=== PATIENT | female | born 2000 | race Two or more races ===

== ENCOUNTER 2023-02-28 07:11 | Emergency (ER) | payer MEDICAID, SELFPAY ==
[2023-02-28 07:38] VITALS: BP 119/46; PULSE 84; RESP 16; TEMP 36.6; O2SAT 98; BMI 43.0
--- NOTE | 2023-02-28 07:48 | ED_ITS ---
HPI - Ear Problem General Chief complaint: Ear Problems Stated complaint: L ear ache Time Seen by Provider: 02/28/23 07:48 Source: patient Mode of arrival: ambulatory Limitations: no limitations History of Present Illness HPI Narrative: 23 yo female presents to the ER for evaluation of bilateral ear pain that started last night, left greater than right. She states she spent the last week at a hotel with her family and spent a lot of time in the pool, up to 5 hours per day. She thinks she has swimmer's ear. She has a history of this is a child. She denies any hearing loss or drainage. She states her left ear hurts significantly worse than the right ear. She has a mild runny nose. No fever or chills. MD Complaint: ear pain Location: bilateral Duration: constant Severity: moderate Relieving factors: nothing Exacerbating factors: position of head and palpation Context: recent swimming Discharge from ear: no Associated symptoms ear: external ear tenderness Treatment prior to arrival: none Related Data Previous Rx's Medication Instructions Recorded ciprofloxacin 0.3 %-dexamethasone 4 drp otic (ears) BID 7 days #7.5 02/28/23 0.1 % ear drops,suspension mL (Ciprodex) ibuprofen 600 mg tablet 600 mg PO Q8H PRN fever or pain 02/28/23 #14 tabs levofloxacin 500 mg tablet 500 mg PO DAILY #7 tabs 02/28/23 Allergies Allergy/AdvReac Type Severity Reaction Status Date / Time Penicillins [PENICILLINS] Allergy Intermediate NASAL Verified 02/28/23 07:40 STUFFYNESS Review of Systems Review of Systems: Yes all other systems are reviewed and are negative FOR[facility] Social History Social History Advance Directives: No Advance Directives Information Provided: No Physical Exam Vital Signs: Vital Signs: Last Vital Signs Temp 97.8 F 02/28/23 07:38 Pulse 84 02/28/23 07:38 Resp 16 02/28/23 07:38 BP 119/46 L 02/28/23 07:38 Pulse Ox 98 02/28/23 07:38 O2 Del Method Room Air 02/28/23 07:38 BMI result Body Mass Index 43.0 Appearance: Alert. Oriented X3. No acute distress. Head: normocephalic, atraumatic. Eyes: Pupils equal, round and reactive to light. ENT: Pharynx normal. No tonsillar swelling or exudate. Left EAC with mild swelling and tenderness. Left TM with erythema and bulging. Right TM and EAC are normal to inspection Neck: Normal inspection. Neck supple. CVS: Normal heart rate and rhythm. Pulses normal. Respiratory: No respiratory distress. Breath sounds normal. Skin: Skin warm and dry. Normal skin color. Normal skin turgor. No rashes. Extremities: No lower extremity edema. No joint swelling. Neuro/psych: Oriented X 3. No motor deficit. No sensory deficit. CN II-XII intact. Normal speech and cognition. Medical Decision Making Medical Decision Making MDM Narrative: 23-year-old female presenting to the ER for evaluation of ear pain, left worse than right since yesterday after spending several days in a hotel pool this week. Exam is consistent with otitis media on the left, possible early otitis externa. Given her full exposure will empirically treat with both oral and topical antibiotics. She was counseled on diagnosis and management as well as precautions, advised not gait water in the ear. Antibiotic prescriptions have been sent her pharmacy. She is stable for discharge home. Work note provided per request. Differential Diagnosis Differential Diagnoses: The differential diagnosis associated with the presen tation includes Acute otitis media, acute otitis externa, sinus infection, cerumen impaction External Record Review External record reviewed: Outpatient record Prescription Management I considered prescription management with: Antibiotic Critical Care Time Critical Care Time Critical Care Time: No Discharge Plan Discharge Clinical Impression: Otitis media Patient Disposition: Home, Self-Care Instructions: Ear Infection (ED) Additional Instructions: Take the prescribed oral antibiotic as directed. Complete the entire course and do not miss any doses. Use the prescribed antibiotic drops into the left ear for 1 week. Take the prescribed ibuprofen as needed for pain. Do not get water in your ear, when you take a shower put a cotton ball inside her ear to prevent water from getting in. Follow-up with your doctor as needed. If you develop new or worsening symptoms call 911 or come back to the ER for further evaluation. Prescriptions: New levofloxacin 500 mg tablet 500 mg PO DAILY Qty: 7 0RF ciprofloxacin-dexamethasone [Ciprodex] 0.3-0.1 % drops,suspension 4 drp otic (ears) BID 7 Days Qty: 7.5 0RF ibuprofen 600 mg tablet 600 mg PO Q8H PRN (Reason: fever or pain) Qty: 14 0RF Stand Alone Forms: Work/School Release
== END 2023-02-28 08:43 | disposition home or self-care (01) ==
PROVIDERS: Emergency Provider Emergency Medicine
DX: H66.92 Otitis media, unspecified, left ear (principal); H92.02 Otalgia, left ear
CPT/HCPCS: 99282; 99283

== ENCOUNTER 2023-03-03 08:50 | Emergency (ER) | payer MEDICAID, SELFPAY ==
--- NOTE | 2023-03-03 | ECG_ITS ---
Test Reason : CP Blood Pressure : / mmHG Vent. Rate : 061 BPM Atrial Rate : 061 BPM P-R Int : 144 ms QRS Dur : 088 ms QT Int : 416 ms P-R-T Axes : 054 051 023 degrees QTc Int : 418 ms Normal sinus rhythm Normal ECG No previous ECGs available Referred By: Generic ED Physician Electronically Signed By:ISABELLA MCKEON
--- NOTE | ~2023-03-03 | CT_ITS ---
EXAMINATION: CT ABDOMEN AND PELVIS WITH CONTRAST CLINICAL INFORMATION: Abdominal pain, nausea, and vomiting. COMPARISON: None available. TECHNIQUE: Multidetector volumetric images were obtained from the superior aspect of the liver through the pubic symphysis following administration 85 mL of Omnipaque 350 intravenous contrast. Sagittal and coronal reformatted images were obtained on the technologist's workstation. Oral contrast: No This CT examination was performed using dose optimization techniques as appropriate, variously including the following: *Automated exposure control *Adjustment of mA and/or kV according to patient size (this includes techniques or standardized protocols for targeted exams where dose is matched to indication/reason for exam; i.e. extremities or head) *Use of iterative reconstruction technique DLP: 862 mGy-cm FINDINGS: LUNG BASES: The lung bases appear clear, with no evidence of inflammation or nodules. LIVER, GALLBLADDER, AND BILIARY TREE: Mild fatty infiltration of liver. The liver appears unremarkable in size and shape. No focal hepatic lesion or biliary ductal dilatation is appreciated. Unremarkable appearance of the gallbladder. PANCREAS: Unremarkable SPLEEN: Unremarkable ADRENAL GLANDS: Unremarkable KIDNEYS AND URETERS: The kidneys appear unremarkable in size, shape, and attenuation. No hydronephrosis, hydroureter, or calculi seen. BLADDER: Unremarkable GASTROINTESTINAL TRACT: The small and large bowel appear unremarkable. No diverticulosis. Normal-appearing distal ileum and vermiform appendix. ABDOMINAL WALL: No significant hernia is appreciated. LYMPH NODES: No evidence of adenopathy by size criteria. VASCULAR: Normal variant retroaortic left renal vein. PELVIC VISCERA: Retroverted uterus. OSSEOUS STRUCTURES: Unremarkable CT/CT abdomen pelvis w IV con IMPRESSION: No acute finding.
[2023-03-03 08:56] VITALS: BP 122/67; BP 140/80; PULSE 78; PULSE 89; RESP 20; TEMP 36.7; O2SAT 97; O2SAT 99; BMI 45.4
[2023-03-03 09:02] VITALS: BP 122/67; PULSE 78; RESP 20; TEMP 36.7; O2SAT 97
--- NOTE | 2023-03-03 09:11 | ED_ITS ---
HPI - General Adult General Chief complaint: Nausea/Vomiting/Diarrhea Stated complaint: abd pain w/vomiting blood per ems Time Seen by Provider: 03/03/23 09:11 Source: patient, family (partner) and EMS Mode of arrival: EMS Limitations: no limitations History of Present Illness HPI narrative: Patient is a 23 year old assigned female at with no reported medical history presenting to the emergency department today with nausea, abdominal pain, and vomiting. Patient states that over the last few hours she has had worse upper abdominal pain, nausea, and vomiting. Patient states that she was recently seen for an ear infection and given ibuprofen 600mg and levofloxacin. Patient states that she is having worsening nasal congestion. Patient denies any dizziness, lightheadedness, fever, chills, blurry vision, double vision, loss of vision, chest pain, difficulty breathing, shortness of breath, back pain, night sweats, pain with urination, increased urinary frequency, increased urinary urgency, blood in her urine or stool, syncope or a near syncopal episode, recent trauma or falls, bowel incontinence, bladder incontinence, bowel retention, bladder retention, or any other complaints at this time. Onset (ago): hour(s) Location: abdomen Severity: mild Severity scale (1-10): 3 Pain Consistency: constant Relieving factors: none Exacerbating factors: none Associated symptoms: nausea/vomiting Treatments prior to arrival: none Related Data Previous Rx's Medication Instructions Recorded ciprofloxacin 0.3 %-dexamethasone 4 drp otic (ears) BID 7 days #7.5 02/28/23 0.1 % ear drops,suspension mL (Ciprodex) doxycycline hyclate 100 mg tablet 100 mg PO BID 7 days #14 tabs 03/03/23 omeprazole 40 mg capsule,delayed 40 mg PO DAILY #30 caps 03/03/23 release ondansetron 4 mg disintegrating 4 mg PO Q8H 3 days #9 tabs 03/03/23 tablet Allergies Allergy/AdvReac Type Severity Reaction Status Date / Time Penicillins [PENICILLINS] Allergy Intermediate NASAL Verified 02/28/23 07:40 STUFFYNESS Review of Systems Constitutional: Constitutional: Reports no additional constitutional complaints, Denies chills, Denies fever(s) and Denies night sweats Eyes: Eyes: Reports no additional eye complaints, Denies blurry vision, Denies change in vision, Denies diplopia, Denies eye discharge, Denies loss of vision and Denies eye pain ENT: Denies dizziness Cardiovascular: Cardiovascular: Reports no additional cardiovascular complaints, Denies chest pain, Denies lightheadedness, Denies Loss of Consciousness and Denies dyspnea Respiratory: Respiratory: Reports no additional respiratory complaints and Denies dyspnea Gastrointestinal: Gastrointestinal: Reports no additional gastrointestinal complaints, Reports abdominal pain, Denies melena, Denies hematochezia, Denies change in bowel habits, Denies change in stool character, Reports nausea and Reports vomiting Genitourinary: Genitourinary: Denies hematuria, Denies urinary frequency, Denies dysuria, Denies urinary incontinence, Denies urinary hesitancy and Denies urinary urgency Musculoskeletal: Musculoskeletal: Reports no additional musculoskeletal complaints, Denies numbness and Denies tingling Neurologic: Denies dizziness, Denies loss of vision, Denies numbness and Denies tingling Psychiatric: Psychiatric: Reports no additional psychiatric complaints Endocrine: Endocrine: Reports no additional endocrine complaints Hematologic/Lymphatic: Hematologic/Lymphatic: Reports no additional hematologic/lymphatic complaints Allergic/Immunologic: Allergic/Immunologic: Reports no additional allergic/immunologic complaints PMFSH Past Medical History Attestation statement: The following information was validated with the patient. Source: old records reviewed and nursing notes reviewed Social History Social History Substance Use Type: Marijuana Physical Exam ED Vital Signs: Vital Signs - 24 hr 03/03/23 08:56 03/03/23 09:02 03/03/23 12:01 Temperature 98.0 F 98.0 F 98.1 F Pulse Rate 78 78 83 Respiratory Rate 20 20 16 Blood Pressure 122/67 122/67 135/59 L Pulse Oximetry 97 97 99 Oxygen Delivery Method Room Air Room Air Room Air BMI result Body Mass Index 45.4 Const General: cooperative, no acute distress, alert and awake Nutritional Appearance: well nourished Orientation/consciousness: patient oriented x3 Limitations: no limitations HENMT Head: Yes normal to inspection and Yes atraumatic Ears: hearing grossly normal bilaterally and external ears normal General nose exam: Normal external nose present, no nasal discharge noted and no epistaxis Face and sinus: Yes normal facial exam, No abrasion and No laceration Mouth: Normal oral and palatal mucosa present, no drooling and no muffled voice Eyes General: appearance normal, both eyes and all related structures Periorbital: periorbital findings normal Eyelids: Yes eyelids normal Conjunctivae: conjunctivae normal Pupils: Equal, round and reactive pupils present EOM: EOMs intact bilaterally Neck Neck: Yes normal visual inspection, Yes full ROM and Yes no lymphadenopathy Chest Chest palpation & inspection: normal inspection of the chest Resp Effort & Inspection: normal respiratory effort and able to speak in complete sentences Auscultation: clear to auscultation bilaterally Cardio Rate: regular rate Rhythm: regular rhythm GI Inspection: Yes normal to inspection Palpation (GI): Soft to palpation, not firm, nontender and no guarding Neuro General: patient oriented x3 and moves all extremities Cranial nerves: Yes Equal, round and reactive pupils present Cognition (Neuro): normal cognition Motor exam (neuro): 5/5 motor strength present throughout Sensory Exam: Normal double simultaneous stimulation for sensation Coordination: [id number]-pg-[id number] test normal Extrem General: Yes normal to inspection, Yes full ROM and Yes capillary refill normal Psych Appearance: grossly normal Mental Status: mental status grossly normal Affect: normal affect Attitude: cooperative Thought process: Normal thought process present Thought content: Normal thought content present Insight: Good insight present (Psych) Medications Administered Discontinued Medications Generic Name Dose Route Start Last Admin Trade Name Freq PRN Reason Stop Dose Admin Sodium Chloride 1,000 mls @ 999 mls/hr 03/03/23 09:15 03/03/23 11:08 Ns IV 03/03/23 10:15 Infused .Q1H1M TYSON Infusion Iohexol 100 ml 03/03/23 13:00 03/03/23 13:01 Iohexol 350 Mg/Ml 100 Ml Infus..Btl IV 03/03/23 13:01 85 ml ONCE ONE Administration Ondansetron HCl 4 mg 03/03/23 09:11 03/03/23 09:47 Ondansetron Hcl 4 Mg/2 Ml Vial IVPUSH 03/03/23 09:12 4 mg ONCE ONE Administration Pantoprazole Sodium 40 mg 03/03/23 09:11 03/03/23 09:49 Pantoprazole Sodium 40 Mg/10 Ml Vial IVPUSH 03/03/23 09:12 40 mg ONCE ONE Administration Medical Decision Making Medical Decision Making MDM Narrative: Patient is a 23 year old assigned female at with no reported medical history presenting to the emergency department today with epigastric pain, nausea, and vomiting. Patient's physical exam was unremarkable. Patient's blood work was unremarkable. Patient's abdomen/pelvis CT showed no acute process. Given patient's description of symptoms and recent excessive Ibuprofen use, I have concern for a peptic ulcer. I explained my physical exam findings as well as all test results to the patient and the patient's partner. I answered all questions asked by the patient and the patient's partner. Patient received IV fluids, protonix, and zofran which she stated helped her symptoms significantly. I stressed the importance of the patient taking her medication as prescribed. I stressed the importance of the patient STOPPING all NSAID use and stopping the levofloxacin. I stressed the importance of the patient following up with her primary care provider and a GI Specialist. I stressed the importance of the patient returning to the emergency department immediately if her symptoms were to worsen or if she were to develop any dizziness, shortness of breath, difficulty breathing, chest pain, blurry vision, loss of vision, nausea, vomiting, abdominal pain, fever, chills, back pain, or any other complaints. Patient verbalized agreement and understanding with this treatment plan and discharg. Differential Diagnosis Differential Diagnoses: The differential diagnosis associated with the presentation includes abdominal pain, nausea, vomiting, peptic ulcer Admission/Observation Consideration of admission/observation: Escalation of care including admission/observation considered Patient would have been admitted had there been evidence of a perforation, evidence of a surgical process, or intractable symptoms. Lab Data MDM Lab Attestation statement: I reviewed the patient's lab results. 03/03/23 09:43 03/03/23 09:43 Labs: Lab Results 03/03/23 03/03/23 03/03/23 Range/Units 09:43 09:43 09:43 WBC 11.1 H (4.8-10.8) X10*3/uL RBC 5.23 (4.20-5.50) X10*6/uL Hgb 13.8 (12.0-16.0) g/dl Hct 43.2 (37.0-47.0) % MCV 82.6 (80.0-98.0) fL MCH 26.4 L (27.0-33.0) pg MCHC 31.9 (31.0-35.0) g/dl RDW 13.8 (11.0-16.0) % Plt Count 260 (160-400) X10*3/uL MPV 11.7 (9.4-12.3) fL Immature Gran % (Auto) 0.3 (0.0-0.4) % Neut % (Auto) 62.7 (45-73) % Lymph % (Auto) 28.5 (20-40) % [place] % (Auto) 6.2 (2-11) % Eos % (Auto) 1.7 (0-4) % Baso % (Auto) 0.6 (0-2) % Lymph # (Auto) 3.2 (1.2-4.9) X10*3/uL [place] # (Auto) 0.7 (0.1-1.2) X10*3/uL Eos # (Auto) 0.2 (0.0-0.4) X10*3/uL Baso # (Auto) 0.1 (0.0-0.2) X10*3/uL Abs Immat Gran (auto) 0.03 (0.00-0.03) X10*3/uL Absolute Neuts (auto) 6.9 (2.0-8.3) x10*3/uL Absolute Nucleated RBC 0.000 (0.0-0.012) X10*3/uL Nucleated RBC % (auto) 0.0 (0.0-0.2) /100WBC Sodium 141 (135-145) mmol/L Potassium 4.6 (3.3-5.1) mmol/L Chloride 108 (96-108) mmol/L Carbon Dioxide 22 (22-29) mmol/L Anion Gap 16 (12-20) BUN 10 (9-16) mg/dL Creatinine 0.75 (0.5-1.4) mg/dL Estim Creat Clear Calc 130.2 Estimated GFR > 60 Random Glucose 90 (60-115) mg/dL Calcium 9.5 (8.4-10.2) mg/dL Magnesium 2.0 (1.6-2.6) mg/dL Total Bilirubin 0.3 (0.0-1.0) mg/dL AST 17 (5-31) U/L ALT 19 (0-31) U/L Alkaline Phosphatase 100 (39-117) U/L Troponin I High Sens < 2.7 (<3.5-17.0) ng/L Total Protein 6.8 (6.5-8.0) g/dL Albumin 4.4 (3.5-5.0) g/dL Beta HCG, Quant mIU/mL 03/03/23 Range/Units 09:43 WBC (4.8-10.8) X10*3/uL RBC (4.20-5.50) X10*6/uL Hgb (12.0-16.0) g/dl Hct (37.0-47.0) % MCV (80.0-98.0) fL MCH (27.0-33.0) pg MCHC (31.0-35.0) g/dl RDW (11.0-16.0) % Plt Count (160-400) X10*3/uL MPV (9.4-12.3) fL Immature Gran % (Auto) (0.0-0.4) % Neut % (Auto) (45-73) % Lymph % (Auto) (20-40) % [place] % (Auto) (2-11) % Eos % (Auto) (0-4) % Baso % (Auto) (0-2) % Lymph # (Auto) (1.2-4.9) X10*3/uL [place] # (Auto) (0.1-1.2) X10*3/uL Eos # (Auto) (0.0-0.4) X10*3/uL Baso # (Auto) (0.0-0.2) X10*3/uL Abs Immat Gran (auto) (0.00-0.03) X10*3/uL Absolute Neuts (auto) (2.0-8.3) x10*3/uL Absolute Nucleated RBC (0.0-0.012) X10*3/uL Nucleated RBC % (auto) (0.0-0.2) /100WBC Sodium (135-145) mmol/L Potassium (3.3-5.1) mmol/L Chloride (96-108) mmol/L Carbon Dioxide (22-29) mmol/L Anion Gap (12-20) BUN (9-16) mg/dL Creatinine (0.5-1.4) mg/dL Estim Creat Clear Calc Estimated GFR Random Glucose (60-115) mg/dL Calcium (8.4-10.2) mg/dL Magnesium (1.6-2.6) mg/dL Total Bilirubin (0.0-1.0) mg/dL AST (5-31) U/L ALT (0-31) U/L Alkaline Phosphatase (39-117) U/L Troponin I High Sens (<3.5-17.0) ng/L Total Protein (6.5-8.0) g/dL Albumin (3.5-5.0) g/dL Beta HCG, Quant < 2 mIU/mL Independent Interpretation I performed an independent interpretation of an: EKG and CT Scan Interpretation: Vent. Rate: 061 BPM ? ? Atrial Rate: 061 BPM P-R Int: 144 ms? QRS Dur: 088 ms QT Int: 416 ms ? ? ? P-R-T Axes: 054 051 023 degrees QTc Int: 418 ms ? Normal sinus rhythm Normal ECG No previous ECGs available ? Electronically Signed By:TOBIAS SCHULTZ Dictated By: Tobias Schultz MD Signed By: Electronically signed by Tobias Schultz MD 03/03/23 1238 My interpretation is in agreement with the radiologist's impression of this imaging study. EXAMINATION: CT ABDOMEN AND PELVIS WITH CONTRAST? CLINICAL INFORMATION: Abdominal pain, nausea, and vomiting.? COMPARISON: None available. TECHNIQUE: Multidetector volumetric images were obtained from the superior aspect of the liver through the pubic symphysis following administration 85 mL of Omnipaque 350 intravenous contrast. Sagittal and coronal reformatted images were obtained on the technologist's workstation.? Oral contrast: No This CT examination was performed using dose optimization techniques as appropriate, variously including the following: *Automated exposure control *Adjustment of mA and/or kV according to patient size (this includes techniques or standardized protocols for targeted exams where dose is matched to indication/reason for exam; i.e. extremities or head) *Use of iterative reconstruction technique DLP: 862 mGy-cm FINDINGS: LUNG BASES: The lung bases appear clear, with no evidence of inflammation or nodules.? LIVER, GALLBLADDER, AND BILIARY TREE: Mild fatty infiltration of liver. The liver appears unremarkable in size and shape. No focal hepatic lesion or biliary ductal dilatation is appreciated. Unremarkable appearance of the gallbladder.? PANCREAS: Unremarkable? SPLEEN: Unremarkable? ADRENAL GLANDS: Unremarkable? KIDNEYS AND URETERS: The kidneys appear unremarkable in size, shape, and attenuation. No hydronephrosis, hydroureter, or calculi seen. ? BLADDER: Unremarkable? GASTROINTESTINAL TRACT: The small and large bowel appear unremarkable. No diverticulosis. Normal-appearing distal ileum and vermiform appendix. ABDOMINAL WALL: No significant hernia is appreciated.? LYMPH NODES: No evidence of adenopathy by size criteria. VASCULAR: Normal variant retroaortic left renal vein. PELVIC VISCERA: Retroverted uterus. OSSEOUS STRUCTURES: Unremarkable? CT/CT abdomen pelvis w IV con IMPRESSION: ? No acute finding. Dictated By: Burton Tirado Signed By: Electronically signed by Burton?Celestino 03/03/23 1407 Independent Historian Clinical information obtained from an independent historian. History obtained from or confirmed by: Other (patient's partner) Critical Care Time Critical Care Time Critical Care Time: Yes Total Critical Care Time: 45 Attestation: I spent 45 minutes of Critical Care Time with this patient. This does not include time spent on separately reported billable procedures. Discharge Plan Discharge Clinical Impression: Peptic ulcer, Nausea & vomiting, Sinusitis Patient Disposition: Home, Self-Care Instructions: Peptic Ulcer (ED), Sinusitis (ED), Acute Nausea and Vomiting (ED) Additional Instructions: Follow up with your primary care provider and a GI specialist. Return to the emergency department immediately if your symptoms worsen or if you develop any dizziness, shortness of breath, difficulty breathing, chest pain, blurry vision, loss of vision, nausea, vomiting, abdominal pain, fever, chills, back pain, or any other complaints. Prescriptions: New doxycycline hyclate 100 mg tablet 100 mg PO BID 7 Days Qty: 14 0RF omeprazole 40 mg capsule,delayed release(DR/EC) 40 mg PO DAILY Qty: 30 0RF ondansetron 4 mg tablet,disintegrating 4 mg PO Q8H 3 Days Qty: 9 0RF Continued ciprofloxacin-dexamethasone [Ciprodex] 0.3-0.1 % drops,suspension 4 drp otic (ears) BID 7 Days Qty: 7.5 0RF Discontinued levofloxacin 500 mg tablet 500 mg PO DAILY Qty: 7 0RF ibuprofen 600 mg tablet 600 mg PO Q8H PRN (Reason: fever or pain) Qty: 14 0RF Ref[place]: [facility] [place]] (Call to establish and follow up with a GI specialist. ) [facility] [place] Family Medicine [Provider Group] (Call to establish and follow up with a primary care provider. If you already have a primary care provider, please follow up with them.) [facility] [place] Primary Care, [place] [Provider Group] (Call to establish and follow up with a primary care provider. If you already have a primary care provider, please follow up with them.) [facility] [place] Primary [facility],[place] [Provider Group] (Call to establish and follow up with a primary care provider. If you already have a primary care provider, please follow up with them.) Stand Alone Forms: Work/School Release Interventions: ED Discharge Assessment Last Done: 03/03/23 14:22 Discharge Date/Time: 03/03/23 14:23 Print Language: Bangladeshi
[2023-03-03 09:47] LABS: MANUAL DIFF FLAG NO
[2023-03-03] MEDS: ondansetron HCL 4 MG/2 ML VIAL IVPUSH (09:47)
[2023-03-03] MEDS: 0.9 % Sodium Chloride 1,000 ML 999 ML IV (09:47)
[2023-03-03] MEDS: Pantoprazole Sodium 40 MG/10 ML VIAL IVPUSH (09:49)
[2023-03-03 09:51] LABS: Basophils Absolute Auto 0.1 X10*3/uL (0.0-0.2); Basophils Percent Auto 0.6 % (0-2); Eosinophils Absolute Auto 0.2 X10*3/uL (0.0-0.4); Eosinophils Percent Auto 1.7 % (0-4); Hematocrit 43.2 % (37.0-47.0); Hemoglobin 13.8 g/dl (12.0-16.0); Imm Gran Abs Auto 0.03 X10*3/uL (0.00-0.03); Imm Gran Pct Auto 0.3 % (0.0-0.4); Lymphocytes Absolute Auto 3.2 X10*3/uL (1.2-4.9); Lymphocytes Percent Auto 28.5 % (20-40); Mean Corpuscular HGB Conc 31.9 g/dl (31.0-35.0); Mean Corpuscular Hemoglobin 26.4 pg (27.0-33.0); Mean Corpuscular Volume 82.6 fL (80.0-98.0); Mean Platelet Volume 11.7 fL (9.4-12.3); Monocytes Absolute Auto 0.7 X10*3/uL (0.1-1.2); Monocytes Percent Auto 6.2 % (2-11); Neutrophils Absolute Auto 6.9 x10*3/uL (2.0-8.3); Neutrophils Percent Auto 62.7 % (45-73); Platelet Count 260 X10*3/uL (160-400); Red Blood Count 5.23 X10*6/uL (4.20-5.50); Red Cell Distribution Width 13.8 % (11.0-16.0); White Blood Count 11.1 X10*3/uL (4.8-10.8)
--- NOTE | 2023-03-03 11:26 | PC.NURSE ---
Addendum entered by Deysi Goldstein RN 03/03/23 11:29: late entry from 929 Original Note: assumed care of this pt at 0855. IV placed, labs drawn, and pt medicated per mar. currently resting comfortably on stretcher in no apparent distress. friend at bedside. rr even/unlabored. wctm
[2023-03-03 11:51] LABS: HCG Quantitative < 2 mIU/mL; Troponin-I High Sensitivity < 2.7 ng/L (<3.5-17.0)
[2023-03-03 12:01] VITALS: BP 135/59; PULSE 83; RESP 16; TEMP 36.7; O2SAT 99
[2023-03-03 12:03] LABS: Alanine Aminotransferase 19 U/L (0-31); Albumin Level 4.4 g/dL (3.5-5.0); Alkaline Phosphatase 100 U/L (39-117); Anion Gap 16 (12-20); Aspartate Amino Transferase 17 U/L (5-31); Bilirubin Total 0.3 mg/dL (0.0-1.0); Blood Urea Nitrogen 10 mg/dL (9-16); Calcium 9.5 mg/dL (8.4-10.2); Carbon Dioxide 22 mmol/L (22-29); Chloride 108 mmol/L (96-108); Creatinine Clr Calc Pharmacy 130.2; Estimated Glomerular Filt Rate > 60; Glucose Random 90 mg/dL (60-115); Potassium 4.6 mmol/L (3.3-5.1); Sodium 141 mmol/L (135-145); Total Protein 6.8 g/dL (6.5-8.0)
[2023-03-03] MEDS: iohexoL 350 MG/ML 100 ML INFUS..BTL IV (13:01)
== END 2023-03-03 14:23 | disposition home or self-care (01) ==
PROVIDERS: Physician Assistant Medical; Emergency Provider Emergency Medicine
DX: K27.9 Peptic ulcer, site unspecified, unspecified as acute or chronic, without hemorrhage or perforation (principal); J32.9 Chronic sinusitis, unspecified; R11.2 Nausea with vomiting, unspecified; F12.90 Cannabis use, unspecified, uncomplicated; Z79.899 Other long term (current) drug therapy
CPT/HCPCS: 36415; 74177; 80053; 83735; 84484; 84702; 85025; 93005; 96361; 96374; 96375; 99284; 99285; J2405; Q9967

== ENCOUNTER 2023-06-27 04:45 | Emergency (ER) | payer MEDICAID, SELFPAY ==
[2023-06-27 04:58] VITALS: BP 143/73; PULSE 110; RESP 22; TEMP 37.2; O2SAT 95; BMI 41.0
[2023-06-27 05:26] LABS: COVID-19 Test Positive (Negative); IDNOW Serial# 08D9AD1C
[2023-06-27 05:29] LABS: IDNOW Serial# BCCEAD1C; Influenza A Negative (Negative); Influenza B2 Negative (Negative)
--- NOTE | 2023-06-27 05:35 | ED.GENADULT ---
HPI - General Adult General Chief complaint: General Medical Stated complaint: Coldlike symptoms ?covid Time Seen by Provider: 06/27/23 05:29 Source: patient Mode of arrival: ambulatory Limitations: no limitations History of Present Illness HPI narrative: Patient comes to the emergency room complaining of 2 days of cough, worsening asthma frequent exacerbations, generalized malaise. Patient states that she works as a [employer]PER[employer], a lot of people have COVID there. Patient tries to protect herself with full PPE Related Data Previous Rx's Medication Instructions Recorded ciprofloxacin 0.3 %-dexamethasone 4 drp otic (ears) BID 7 days #7.5 02/28/23 0.1 % ear drops,suspension mL (Ciprodex) doxycycline hyclate 100 mg tablet 100 mg PO BID 7 days #14 tabs 03/03/23 omeprazole 40 mg capsule,delayed 40 mg PO DAILY #30 caps 03/03/23 release ondansetron 4 mg disintegrating 4 mg PO Q8H 3 days #9 tabs 03/03/23 tablet albuterol sulfate 2.5 mg/3 mL 2.5 mg (3 mL) inhalation Q4-6H PRN 06/27/23 (0.083 %) solution for nebulization shortness of breath or wheezing #75 mL albuterol sulfate 90 mcg/actuation 2 puff inhalation Q4-6H PRN 06/27/23 aerosol inhaler shortness of breath or wheezing #8.5 grams nirmatrelvir 300 mg (150 mg See Rx Instructions PO .COMPLEX 06/27/23 x2)-ritonavir 100 mg tablet,dose #30 ea pack (Paxlovid) prednisone 50 mg tablet 50 mg PO DAILY #5 tabs 06/27/23 Allergies Allergy/AdvReac Type Severity Reaction Status Date / Time Penicillins [PENICILLINS] Allergy Intermediate NASAL Verified 06/27/23 05:08 STUFFKAIT Review of Systems Review of Systems: Constitutional : No Weight loss, No Fever, No Chills, No Night Sweats, complaining of fatigue and generalized malaise ENT/Mouth : No Hearing loss, complaining of left-sided Ear Pain, No Nasal Congestion, No Sinus Pain, No Hoarseness, complaining of sore throat, No Rhinorrhea, No Swallowing Difficulty Eyes: No Eye Pain, No Swelling, No Redness, No Foreign Body, No Discharge, No Vision Changes Cardiovascular : No Chest Pain, No SOB, No Dyspnea on Exertion, No Orthopnea, No Edema, No Palpitations Respiratory : No Cough, No Sputum, No Wheezing, No Smoke Exposure, No Dyspnea Gastrointestinal : No Nausea, No Vomiting, No Diarrhea, No Constipation, No abdominal Pain, No Hematochezia, No Melena Genitourinary : no irregular bleeding, No Dysuria, No Urinary Frequency, No Hematuria, No Urinary Incontinence, No Urgency, No Flank Pain, No Urinary Flow Changes, No Hesitancy Musculoskeletal : No joint pain, No Myalgias, No Joint Swelling Skin : No Skin Lesions, No rash Neuro : No Weakness, No Numbness, No Paresthesias, No Loss of Consciousness, No Dizziness, No Headache Psych : No Anxiety/Panic, No Depression, No SI/HI/AH/VH, No Social Issues, Heme/Lymph: No Bruising, No Bleeding,No Lymphadenopathy Endocrine : No Polyuria, No Polydipsia, No Temperature Intolerance [facility] Social History Social History Substance Use Type: Marijuana Advance Directives: No Advance Directives Information Provided: Yes Physical Exam ED Vital Signs: Vital Signs - 24 hr 06/27/23 04:58 Temperature 98.9 F Pulse Rate 110 H Respiratory Rate 22 H Blood Pressure 143/73 H Pulse Oximetry 95 Oxygen Delivery Method Room Air BMI result Body Mass Index 41.0 Const Other: Appearance: Alert. Oriented X3. No acute distress. Eyes: Pupils equal, round and reactive to light. ENT: Pharynx normal. Bilateral tympanic membranes within normal limits Neck: Normal inspection. Neck supple. No lymph nodes noted. No crepitus CVS: Normal heart rate and rhythm. Pulses normal. Normal S1 and S2 Respiratory: No respiratory distress. Breath sounds normal. No Wheezing. No rales Abdomen: Soft and nontender. No rigidity. No distention. Skin: Skin warm and dry. Normal skin color. Normal skin turgor. Extremities: No lower extremity edema. No Lacerations. No Rash Neuro: Oriented X 3. No motor deficit. No sensory deficit. Moving all extremities. No slurred speech. CN 2 through 12 grossly intact Psych: calm, cooperative, normal affect Medical Decision Making Medical Decision Making MDM Narrative: My interpretation of labs, and patient tested positive for COVID-19 -discussed with the patient benefits versus adverse reactions from Paxlovid, patient is still within the window of treatment, patient decided to go ahead and get treated with the antiviral Differential Diagnosis Differential Diagnoses: The differential diagnosis associated with the presentation includes (COVID, influenza, viral URI) Lab Data MDM Lab Attestation statement: I reviewed the patient's lab results. Labs: Lab Results 06/27/23 06/27/23 Range/Units 05:04 05:04 COVID-19 ([facility]RIE) Positive A (Negative) COVID-19 Clin Com See Note Influenza Type A (PATIENCE) Negative (Negative) Influenza Type B (PATIENCE) Negative (Negative) Influenza A & B Note See Note Discharge Plan Discharge Clinical Impression: COVID-19 Patient Disposition: Home, Self-Care Instructions: COVID-19 (Coronavirus Disease 2019) (ED) Additional Instructions: Please follow-up with your primary care physician tomorrow. If you have any worsening or new symptoms, please return to the emergency room or call 911 Prescriptions: New Paxlovid 300 mg (150 mg x 2)-100 mg tablets,dose pack See Rx Instructions .ROUTE .COMPLEX Qty: 30 0RF Rx Instructions: take TWO 150 mg tablets of nirmatrelvir with ONE 100 mg tablet of ritonavir twice daily for 5 days albuterol sulfate 90 mcg/actuation HFA aerosol inhaler 2 puff inhalation Q4-6H PRN (Reason: shortness of breath or wheezing) Qty: 8.5 1RF albuterol sulfate 2.5 mg /3 mL (0.083 %) solution for nebulization 2.5 mg inhalation Q4-6H PRN (Reason: shortness of breath or wheezing) Qty: 75 0RF prednisone 50 mg tablet 50 mg PO DAILY Qty: 5 0RF No Action ciprofloxacin-dexamethasone [Ciprodex] 0.3-0.1 % drops,suspension 4 drp otic (ears) BID 7 Days Qty: 7.5 0RF doxycycline hyclate 100 mg tablet 100 mg PO BID 7 Days Qty: 14 0RF omeprazole 40 mg capsule,delayed release(DR/EC) 40 mg PO DAILY Qty: 30 0RF ondansetron 4 mg tablet,disintegrating 4 mg PO Q8H 3 Days Qty: 9 0RF
[2023-06-27 05:49] VITALS: PULSE 93; RESP 20; O2SAT 97
== END 2023-06-27 05:51 | disposition home or self-care (01) ==
PROVIDERS: Emergency Provider Emergency Medicine
DX: U07.1 COVID-19 (principal); Z79.899 Other long term (current) drug therapy
CPT/HCPCS: 87502; 87635; 99282; 99283

== ENCOUNTER 2023-07-07 17:37 | Emergency (ER) | payer MEDICAID, SELFPAY ==
[2023-07-07 17:50] VITALS: BP 127/77; PULSE 76; RESP 18; TEMP 36.8; O2SAT 98; BMI 43.0
--- NOTE | 2023-07-07 17:50 | ED_ITS ---
HPI - Dental/Oral General Chief complaint: Dental/Oral Stated complaint: dental pain Time Seen by Provider: 07/07/23 17:53 Source: patient, RN notes reviewed and old records reviewed Mode of arrival: ambulatory History of Present Illness HPI Narrative: 23 [id number] with no sig PMHx c/o left lower molar pain x2 days with radiation to left ear. Admits to cracking tooth on fried ice cream about 2 weeks ago, has been taking extra-strength Tylenol without relief. Denies drainage from area, fever/chills. Admits called her dentist and has an appointment on Thursday, was instructed to come to the ED for antibiotics MD Complaint: tooth pain Related Data Previous Rx's Medication Instructions Recorded ciprofloxacin 0.3 %-dexamethasone 4 drp otic (ears) BID 7 days #7.5 02/28/23 0.1 % ear drops,suspension mL (Ciprodex) doxycycline hyclate 100 mg tablet 100 mg PO BID 7 days #14 tabs 03/03/23 omeprazole 40 mg capsule,delayed 40 mg PO DAILY #30 caps 03/03/23 release ondansetron 4 mg disintegrating 4 mg PO Q8H 3 days #9 tabs 03/03/23 tablet albuterol sulfate 2.5 mg/3 mL 2.5 mg (3 mL) inhalation Q4-6H PRN 06/27/23 (0.083 %) solution for nebulization shortness of breath or wheezing #75 mL albuterol sulfate 90 mcg/actuation 2 puff inhalation Q4-6H PRN 06/27/23 aerosol inhaler shortness of breath or wheezing #8.5 grams nirmatrelvir 300 mg (150 mg See Rx Instructions PO .COMPLEX 06/27/23 x2)-ritonavir 100 mg tablet,dose #30 ea pack (Paxlovid) prednisone 50 mg tablet 50 mg PO DAILY #5 tabs 06/27/23 cefdinir 300 mg capsule 300 mg PO BID 7 days #14 caps 07/07/23 Allergies Allergy/AdvReac Type Severity Reaction Status Date / Time Penicillins [PENICILLINS] Allergy Intermediate NASAL Verified 06/27/23 05:08 STUFFYNESS Review of Systems Review of Systems: Constitutional: No Fever, No Chills ENT/Mouth: +dental pain, No Ear Pain, No Nasal Congestion, No Sinus Pain, No Hoarseness, No sore throat, No Rhinorrhea, No Swallowing Difficulty Cardiovascular: No Chest Pain, No SOB Respiratory: No Cough Gastrointestinal: No Nausea, No Vomiting, No Diarrhea, No Constipation, No Abdominal pain Skin: No Skin Lesions, No rash Neuro: No Weakness, Yes all other systems are reviewed and are negative Constitutional: Constitutional: Reports as per [facility] Past Medical History Attestation statement: The following information was validated with the patient. Source: old records reviewed Social History Social History Substance Use Type: Marijuana Physical Exam Vital Signs: Vital Signs: Last Vital Signs Temp 98.2 F 07/07/23 17:50 Pulse 76 07/07/23 17:50 Resp 18 07/07/23 17:50 BP 127/77 07/07/23 17:50 Pulse Ox 98 07/07/23 17:50 O2 Del Method Room Air 07/07/23 17:50 BMI result Body Mass Index 43.0 Const: General: cooperative, healthy appearing and no acute distress Orientation/consciousness: patient oriented x3 Limitations: no limitations HEENT: Other: Poor dentition. Left lower 3rd molar cracked, no visible pulp, surrounding gingival inflammation noted with tenderness. No erythema, fluctuance or induration. Right lower 2nd molar chronically cracked Head: Yes normal to inspection and Yes atraumatic Ears: hearing grossly normal bilaterally, external ears normal, TM's normal bilaterally and mastoids normal General nose exam: Normal external nose present Face and sinus: Yes normal facial exam Mouth: no drooling Throat: Yes posterior oropharynx normal, Yes tonsils normal and Yes uvula midline Eyes: General: appearance normal, both eyes and all related structures EOM: EOMs intact bilaterally Neck: Neck: Yes normal visual inspection, Yes no meningeal signs, Yes supple and No anterior neck swelling Resp: Effort & Inspection: normal respiratory effort, no respiratory distress and no stridor Cardio: Rate: regular rate Skin: Rashes: no rashes Wounds: no wounds Neuro: General: patient oriented x3, tone normal and no meningeal signs Cranial nerves: Yes CN's II-XII intact bilaterally Gait exam (Neuro): Normal gait present Extrem: General: Yes normal to inspection Medical Decision Making Medical Decision Making MDM Narrative: 23 [id number] with no sig PMHx c/o left lower molar pain x2 days with radiation to left ear. Admits to cracking tooth on fried ice cream about 2 weeks ago, has been taking extra-strength Tylenol without relief. On exam VSS, NAD, PE as above with cracked L lower molar with gingival swelling and ttp. no appreciable abscess. no cellulitis or facial swelling, uvula midline, talking in complete sentences. Concern for dental infection. Low suspicion for [employer], retropharyngeal abscess, otitis Plan: PO Abx, Dental f/u Results discussed with patient including worrisome signs and symptoms and strict return precautions, and when to return to the emergency department. They verbalized understanding and feel safe for discharge at this time. Differential Diagnosis Differential Diagnoses: The differential diagnosis associated with the presentation includes As above External Record Review External record reviewed: Inpatient record, Office record, Outpatient record, Prior outpatient labs, Prior outpatient radiology, Primary care record and Outside ED record Tests considered The following testing was considered but not selected: As above Prescription Management I considered prescription management with: Pain Medication and Antibiotic Discharge Plan Discharge Clinical Impression: Pain, dental Patient Disposition: Home, Self-Care Instructions: Toothache (ED) Additional Instructions: Cefdinir is an antibiotic please take as prescribed Continue to apply ice Take Tylenol for pain If symptoms persist or worsen/become unbearable return to the ED Follow-up with her dentist Prescriptions: New cefdinir 300 mg capsule 300 mg PO BID 7 Days Qty: 14 0RF No Action Paxlovid 300 mg (150 mg x 2)-100 mg tablets,dose pack See Rx Instructions .ROUTE .COMPLEX Qty: 30 0RF Rx Instructions: take TWO 150 mg tablets of nirmatrelvir with ONE 100 mg tablet of ritonavir twice daily for 5 days albuterol sulfate 90 mcg/actuation HFA aerosol inhaler 2 puff inhalation Q4-6H PRN (Reason: shortness of breath or wheezing) Qty: 8.5 1RF albuterol sulfate 2.5 mg /3 mL (0.083 %) solution for nebulization 2.5 mg inhalation Q4-6H PRN (Reason: shortness of breath or wheezing) Qty: 75 0RF prednisone 50 mg tablet 50 mg PO DAILY Qty: 5 0RF ciprofloxacin-dexamethasone [Ciprodex] 0.3-0.1 % drops,suspension 4 drp otic (ears) BID 7 Days Qty: 7.5 0RF doxycycline hyclate 100 mg tablet 100 mg PO BID 7 Days Qty: 14 0RF omeprazole 40 mg capsule,delayed release(DR/EC) 40 mg PO DAILY Qty: 30 0RF ondansetron 4 mg tablet,disintegrating 4 mg PO Q8H 3 Days Qty: 9 0RF Referrals: Physician,None [Primary Care Provider] -
== END 2023-07-07 18:08 | disposition home or self-care (01) ==
PROVIDERS: Emergency Provider Emergency Medicine
DX: K08.89 Other specified disorders of teeth and supporting structures (principal); Z79.899 Other long term (current) drug therapy; F12.90 Cannabis use, unspecified, uncomplicated
CPT/HCPCS: 99282; 99283

== ENCOUNTER 2023-12-26 20:53 | Emergency (ER) | payer MEDICAID, SELFPAY ==
[2023-12-26 21:03] VITALS: BP 129/71; PULSE 90; RESP 16; TEMP 36.6; O2SAT 96; BMI 45.6
[2023-12-26 21:37] LABS: IDNOW Serial# 58CA691E; Strep A Nucleic Acid Negative (Negative)
[2023-12-26 21:51] LABS: Influenza A PCR NEGATIVE (Negative); Influenza B PCR NEGATIVE (Negative); Resp Syncy Virus RNA Qual PCR NEGATIVE (Negative); SARS COV2 PCR INHOUSE NEGATIVE (Negative)
--- NOTE | 2023-12-26 23:00 | ED_ITS ---
HPI - URI/Sore Throat General Chief Complaint: Upper Respiratory Symptoms Stated Complaint: ? sinus infection Time Seen by Provider: 12/26/23 22:22 Source: patient Mode of arrival: ambulatory Limitations: no limitations History of Present Illness HPI Narrative: Patient with nasal congestion cough for last 3 days no fever no other family member sick coughing mostly dry does have enlarged tonsils Related Data Previous Rx's Medication Instructions Recorded ciprofloxacin 0.3 %-dexamethasone 4 drp otic (ears) BID 7 days #7.5 02/28/23 0.1 % ear drops,suspension mL (Ciprodex) doxycycline hyclate 100 mg tablet 100 mg PO BID 7 days #14 tabs 03/03/23 omeprazole 40 mg capsule,delayed 40 mg PO DAILY #30 caps 03/03/23 release ondansetron 4 mg disintegrating 4 mg PO Q8H 3 days #9 tabs 03/03/23 tablet albuterol sulfate 2.5 mg/3 mL 2.5 mg (3 mL) inhalation Q4-6H PRN 06/27/23 (0.083 %) solution for nebulization shortness of breath or wheezing #75 mL albuterol sulfate 90 mcg/actuation 2 puff inhalation Q4-6H PRN 06/27/23 aerosol inhaler shortness of breath or wheezing #8.5 grams nirmatrelvir 300 mg (150 mg See Rx Instructions PO .COMPLEX 06/27/23 x2)-ritonavir 100 mg tablet,dose #30 ea pack (Paxlovid) prednisone 50 mg tablet 50 mg PO DAILY #5 tabs 06/27/23 cefdinir 300 mg capsule 300 mg PO BID 7 days #14 caps 07/07/23 cefuroxime axetil 500 mg tablet 500 mg PO BID 7 days #14 tabs 12/26/23 Allergies Allergy/AdvReac Type Severity Reaction Status Date / Time Penicillins [PENICILLINS] Allergy Intermediate NASAL Verified 12/26/23 21:03 STUFFYNESS Review of Systems Review of Systems: Yes all other systems are reviewed and are negative [facility] Social History Social History Substance Use Type: Marijuana Advance Directives: No Advance Directives Information Provided: No Physical Exam Vital Signs: Vital Signs: Last Vital Signs Temp 98 F 12/26/23 21:03 Pulse 90 12/26/23 21:03 Resp 16 12/26/23 21:03 BP 129/71 12/26/23 21:03 Pulse Ox 96 12/26/23 21:03 O2 Del Method Room Air 12/26/23 21:03 BMI result Body Mass Index 45.6 Appearance: Alert. Oriented X3. No acute distress. ENT: Pharynx normal. Oral Mucosa moist enlarged tonsils no exudates tympanic membrane intact no fluid bandage tympanic membranes nasal turbinates inflamed with purulent discharge no sinus tenderness Neck: Normal inspection. Neck supple. CVS: Normal heart rate and rhythm. Pulses normal. Respiratory: No respiratory distress. Equal air entry bilateral, Abdomen: Soft and nontender. Skin: Skin warm and dry. Normal skin color. Normal skin turgor. Neuro: Oriented X 3. Medical Decision Making Lab Data [facility] Lab Attestation statement: I reviewed the patient's lab results. Labs: Lab Results 12/26/23 Range/Units 21:10 Influenza Type A (PCR) NEGATIVE (Negative) Influenza Type B (PCR) NEGATIVE (Negative) RSV RNA Qual (PCR) NEGATIVE (Negative) SARS-CoV-2 RNA (RT-PCR) NEGATIVE (Negative) S. pyogenes GrpA PATIENCE Negative (Negative) Discharge Plan Discharge Clinical Impression: Acute rhinosinusitis Patient Disposition: Home, Self-Care Instructions: Rhinosinusitis (ED) Additional Instructions: Take antibiotic as prescribed Your COVID , influenza and strep negative Follow with PCP if not better Prescriptions: New cefuroxime axetil 500 mg tablet 500 mg PO BID 7 Days Qty: 14 0RF No Action Paxlovid 300 mg (150 mg x 2)-100 mg tablets,dose pack See Rx Instructions .ROUTE .COMPLEX Qty: 30 0RF Rx Instructions: take TWO 150 mg tablets of nirmatrelvir with ONE 100 mg tablet of ritonavir twice daily for 5 days albuterol sulfate 90 mcg/actuation HFA aerosol inhaler 2 puff inhalation Q4-6H PRN (Reason: shortness of breath or wheezing) Qty: 8.5 1RF albuterol sulfate 2.5 mg /3 mL (0.083 %) solution for nebulization 2.5 mg inhalation Q4-6H PRN (Reason: shortness of breath or wheezing) Qty: 75 0RF prednisone 50 mg tablet 50 mg PO DAILY Qty: 5 0RF cefdinir 300 mg capsule 300 mg PO BID 7 Days Qty: 14 0RF ciprofloxacin-dexamethasone [Ciprodex] 0.3-0.1 % drops,suspension 4 drp otic (ears) BID 7 Days Qty: 7.5 0RF doxycycline hyclate 100 mg tablet 100 mg PO BID 7 Days Qty: 14 0RF omeprazole 40 mg capsule,delayed release(DR/EC) 40 mg PO DAILY Qty: 30 0RF ondansetron 4 mg tablet,disintegrating 4 mg PO Q8H 3 Days Qty: 9 0RF
[2023-12-26] MEDS: cefuroxime axetiL 500 MG TABLET PO (23:14)
== END 2023-12-26 23:18 | disposition home or self-care (01) ==
PROVIDERS: Emergency Provider Internal Medicine
DX: J01.90 Acute sinusitis, unspecified (principal); R05.9 Cough, unspecified; R09.81 Nasal congestion; J35.1 Hypertrophy of tonsils; Z11.52 Encounter for screening for COVID-19; Z20.828 Contact with and (suspected) exposure to other viral communicable diseases
CPT/HCPCS: 0241U; 87651; 99282; 99283

== ENCOUNTER 2024-01-10 15:18 | Emergency (ER) | payer MEDICAID, SELFPAY ==
[2024-01-10 16:11] VITALS: BP 129/58; PULSE 78; RESP 16; TEMP 36.6; O2SAT 98; BMI 42.4
--- NOTE | 2024-01-10 16:13 | ED_ITS ---
HPI - General Adult General Chief complaint: General Medical Stated complaint: has red eye and hurts Time Seen by Provider: 01/10/24 19:37 Related Data Previous Rx's Medication Instructions Recorded ciprofloxacin 0.3 %-dexamethasone 4 drp otic (ears) BID 7 days #7.5 02/28/23 0.1 % ear drops,suspension mL (Ciprodex) doxycycline hyclate 100 mg tablet 100 mg PO BID 7 days #14 tabs 03/03/23 omeprazole 40 mg capsule,delayed 40 mg PO DAILY #30 caps 03/03/23 release ondansetron 4 mg disintegrating 4 mg PO Q8H 3 days #9 tabs 03/03/23 tablet albuterol sulfate 2.5 mg/3 mL 2.5 mg (3 mL) inhalation Q4-6H PRN 06/27/23 (0.083 %) solution for nebulization shortness of breath or wheezing #75 mL albuterol sulfate 90 mcg/actuation 2 puff inhalation Q4-6H PRN 06/27/23 aerosol inhaler shortness of breath or wheezing #8.5 grams nirmatrelvir 300 mg (150 mg See Rx Instructions PO .COMPLEX 06/27/23 x2)-ritonavir 100 mg tablet,dose #30 ea pack (Paxlovid) prednisone 50 mg tablet 50 mg PO DAILY #5 tabs 06/27/23 cefdinir 300 mg capsule 300 mg PO BID 7 days #14 caps 07/07/23 cefuroxime axetil 500 mg tablet 500 mg PO BID 7 days #14 tabs 12/26/23 Allergies Allergy/AdvReac Type Severity Reaction Status Date / Time Penicillins [PENICILLINS] Allergy Intermediate NASAL Verified 12/26/23 21:03 STUFFYNESS [facility] Social History Social History Substance Use Type: Marijuana Advance Directives: No Advance Directives Information Provided: No Physical Exam ED Vital Signs: BMI result Body Mass Index 42.4 Course Course Course Narrative: This is a rapid medical exam: Additional HPI, ROS, PE not included below will be deferred to primary provider. Patient is a 23-year-old female presenting to the ED with complaint of left eye irritation, headache, and nausea/vomiting since yesterday. Has been able to tolerate water today but nothing carbonated. No contact lens use. Plan: visual acuity, viral swabs Addition chart created for same visit, primary provider RADHA Oliva Medications Administered Discontinued Medications Generic Name Dose Route Start Last Admin Trade Name Sara PRN Reason Stop Dose Admin Fluorescein Sodium 1 strip 01/10/24 20:09 01/10/24 20:53 Fluorescein Sodium Strip EYE-LEFT 01/10/24 20:10 Not Given ONCE ONE Fluorescein Sodium 1 strip 01/10/24 20:09 01/10/24 20:52 Fluorescein Sodium Strip EYE-RIGHT 01/10/24 20:10 1 strip ONCE ONE Administration Ibuprofen 800 mg 01/10/24 20:51 01/10/24 20:56 Ibuprofen 800 Mg Tablet PO 01/10/24 20:52 800 mg ONCE ONE Administration Metoclopramide HCl 10 mg 01/10/24 20:51 01/10/24 20:57 Metoclopramide Hcl Oral Soln 10 Mg/10 Ml Solution PO 01/10/24 20:52 Not Given ONCE ONE Tetracaine HCl 3 drop 01/10/24 20:30 01/10/24 20:53 Tetracaine Hcl/Pf 0.5% Oph Juliet 4 Ml Drops EYE-BOTH 01/10/24 20:31 3 drop ONCE ONE Administration Medical Decision Making Lab Data Labs: Lab Results 01/10/24 Range/Units 16:25 Influenza Type A (PCR) NEGATIVE (Negative) Influenza Type B (PCR) NEGATIVE (Negative) RSV RNA Qual (PCR) NEGATIVE (Negative) SARS-CoV-2 RNA (RT-PCR) NEGATIVE (Negative) Discharge Plan Discharge Clinical Impression: Migraine, Acute left eye pain, TYSON (subconjunctival hemorrhage) Patient Disposition: Home, Self-Care Instructions: Migraine Headache (ED), Subconjunctival Hemorrhage (ED), Eye Pain (ED) Additional Instructions: Return to the ED immediately for worsening eye pain, headache, nausea, vomiting, photophobia, neck stiffness, loss of vision, change in vision, fever, chills, eye drainage, eye redness, or any other concerning symptoms. Continue taking Advil that you have at home for headache/pain. Recommend follow-up with primary care provider Prescriptions: No Action Paxlovid 300 mg (150 mg x 2)-100 mg tablets,dose pack See Rx Instructions .ROUTE .COMPLEX Qty: 30 0RF Rx Instructions: take TWO 150 mg tablets of nirmatrelvir with ONE 100 mg tablet of ritonavir twice daily for 5 days albuterol sulfate 90 mcg/actuation HFA aerosol inhaler 2 puff inhalation Q4-6H PRN (Reason: shortness of breath or wheezing) Qty: 8.5 1RF albuterol sulfate 2.5 mg /3 mL (0.083 %) solution for nebulization 2.5 mg inhalation Q4-6H PRN (Reason: shortness of breath or wheezing) Qty: 75 0RF prednisone 50 mg tablet 50 mg PO DAILY Qty: 5 0RF cefdinir 300 mg capsule 300 mg PO BID 7 Days Qty: 14 0RF ciprofloxacin-dexamethasone [Ciprodex] 0.3-0.1 % drops,suspension 4 drp otic (ears) BID 7 Days Qty: 7.5 0RF doxycycline hyclate 100 mg tablet 100 mg PO BID 7 Days Qty: 14 0RF omeprazole 40 mg capsule,delayed release(DR/EC) 40 mg PO DAILY Qty: 30 0RF ondansetron 4 mg tablet,disintegrating 4 mg PO Q8H 3 Days Qty: 9 0RF cefuroxime axetil 500 mg tablet 500 mg PO BID 7 Days Qty: 14 0RF Stand Alone Forms: Work/School Release Interventions: ED Discharge Assessment Last Done: 01/10/24 21:58 Discharge Date/Time: 01/10/24 21:59 Print Language: French
[2024-01-10 17:08] LABS: Influenza A PCR NEGATIVE (Negative); Influenza B PCR NEGATIVE (Negative); Resp Syncy Virus RNA Qual PCR NEGATIVE (Negative); SARS COV2 PCR INHOUSE NEGATIVE (Negative)
[2024-01-10 19:07] VITALS: BP 111/57; PULSE 68; RESP 20; TEMP 36.9; O2SAT 98
[2024-01-10] MEDS: Fluorescein Sodium STRIP 1 STRIP EYE-RIGHT (20:52)
[2024-01-10] MEDS: Tetracaine HCl/PF 0.5% Oph Sol 4 ML DROPS 3 DROP EYE-BOTH (20:53)
[2024-01-10] MEDS: Ibuprofen 800 MG TABLET PO (20:56)
--- NOTE | 2024-01-10 21:31 | ED.GENADULT ---
HPI - General Adult General Chief complaint: General Medical Stated complaint: has red eye and hurts Time Seen by Provider: 01/10/24 19:37 Source: patient Mode of arrival: ambulatory Limitations: no limitations History of Present Illness HPI narrative: 23-year-old female history of migraine presents to the ED for left eye pain. Patient states since yesterday into today she had left-sided headache, nausea, 1 episode of vomiting, and left eye pain. Patient denies any neck stiffness, neck pain, slurred speech, facial droop, paralysis of extremities, loss of vision, blurry vision, fever, chills, recent head trauma, loss of vision, or wearing contacts. Patient states presently the headache resolved and she no longer have nausea. Patient states main complaint is left eye pain. Patient area of what seems to be blood was present 2 days before having symptoms. Patient denies this being the worst headache of her life. Patient denies any recent trauma. Related Data Previous Rx's Medication Instructions Recorded ciprofloxacin 0.3 %-dexamethasone 4 drp otic (ears) BID 7 days #7.5 02/28/23 0.1 % ear drops,suspension mL (Ciprodex) doxycycline hyclate 100 mg tablet 100 mg PO BID 7 days #14 tabs 03/03/23 omeprazole 40 mg capsule,delayed 40 mg PO DAILY #30 caps 03/03/23 release ondansetron 4 mg disintegrating 4 mg PO Q8H 3 days #9 tabs 03/03/23 tablet albuterol sulfate 2.5 mg/3 mL 2.5 mg (3 mL) inhalation Q4-6H PRN 06/27/23 (0.083 %) solution for nebulization shortness of breath or wheezing #75 mL albuterol sulfate 90 mcg/actuation 2 puff inhalation Q4-6H PRN 06/27/23 aerosol inhaler shortness of breath or wheezing #8.5 grams nirmatrelvir 300 mg (150 mg See Rx Instructions PO .COMPLEX 06/27/23 x2)-ritonavir 100 mg tablet,dose #30 ea pack (Paxlovid) prednisone 50 mg tablet 50 mg PO DAILY #5 tabs 06/27/23 cefdinir 300 mg capsule 300 mg PO BID 7 days #14 caps 07/07/23 cefuroxime axetil 500 mg tablet 500 mg PO BID 7 days #14 tabs 12/26/23 Allergies Allergy/AdvReac Type Severity Reaction Status Date / Time Penicillins [PENICILLINS] Allergy Intermediate NASAL Verified 12/26/23 21:03 STUFFYNESS Review of Systems Review of Systems: Resolved headache and nausea. Not having only left eye pain. Yes all other systems are reviewed and are negative [facility] Social History Social History Substance Use Type: Marijuana Advance Directives: No Advance Directives Information Provided: No Physical Exam ED Vital Signs: Vital Signs - 24 hr 01/10/24 21:58 Temperature 98.4 F Pulse Rate 67 Respiratory Rate 18 Blood Pressure 112/60 Pulse Oximetry 98 Oxygen Delivery Method Room Air BMI result Body Mass Index 42.4 Const Orientation/consciousness: oriented to person, oriented to place, oriented to time and patient oriented x3 HENMT Head: Yes normal to inspection, Yes No palpable skull fracture present, Yes normocephalic, Yes atraumatic and No abrasion Ears: hearing grossly normal bilaterally, external ears normal, TM's normal bilaterally, TM normal on the right, TM normal on the left, EAC's normal, mastoids normal and no periauricular adenopathy General nose exam: Normal external nose present, Normal nares present and No nasal polyps present Face and sinus: Yes normal facial exam, Yes sinuses nontender and Yes face symmetric Mouth: Normal oral and palatal mucosa present, lip normal and tongue normal Throat: Yes posterior oropharynx normal, Yes tonsils normal and Yes uvula midline Eyes Other: Visual acuity left eye 20/30, right eye 20/40. Left eye had tetracaine placed with fluorescein dye also placed. Under Wood's lamp left eye negative for any corneal abrasion, corneal ulcer, dendrites, foreign body, or signs of globe rupture. RIght eye is normal General: appearance normal, both eyes and all related structures Visual Ahumada: normal visual ahumada by confrontation Alignment and Position: alignment normal Periorbital: periorbital findings normal Eyelids: Yes eyelids normal Conjunctivae: conjunctivae normal Sclerae: scleral abnormal left (subconjuctival hemmorhage) Corneas: corneas normal Pupils: Equal, round and reactive pupils present Eyes/upper lids images: 1. Subconjunctival hemorrhage Neck Neck: Yes normal visual inspection, Yes full ROM, Yes no lymphadenopathy, Yes no meningeal signs, Yes trachea midline, Yes supple, No anterior neck swelling and No tender Chest Chest palpation & inspection: normal inspection of the chest and normal palpation of entire chest wall Resp Effort & Inspection: normal respiratory effort and able to speak in complete sentences Auscultation: clear to auscultation bilaterally Cardio Jugular venous distension: no JVD Heart sounds: S1 normal heart sound present and S2 normal heart sound present GI Inspection: Yes normal to inspection Palpation (GI): Soft to palpation, not firm, nontender, no guarding and not rigid General: No CVA tenderness and Yes no CVA tenderness Back/Spine/Pelvis Back: no CVA tenderness, No CVA tenderness and No back tenderness Skin General skin exam: no rashes or lesions noted, elasticity normal and turgor normal Neuro General: oriented to person, oriented to place, oriented to time, patient oriented x3, gait normal, tone normal, moves all extremities, Normal light touch and pain sensation, no meningeal signs, no focal motor deficits, CN's II-XI intact bilaterally and normal sensation to monofilament Cranial nerves: Yes Equal, round and reactive pupils present Extrem General: Yes normal to inspection and Yes full ROM Psych Appearance: grossly normal, well kempt and not disheveled Medications Administered Discontinued Medications Generic Name Dose Route Start Last Admin Trade Name Sara PRN Reason Stop Dose Admin Fluorescein Sodium 1 strip 01/10/24 20:09 01/10/24 20:53 Fluorescein Sodium Strip EYE-LEFT 01/10/24 20:10 Not Given ONCE ONE Fluorescein Sodium 1 strip 01/10/24 20:09 01/10/24 20:52 Fluorescein Sodium Strip EYE-RIGHT 01/10/24 20:10 1 strip ONCE ONE Administration Ibuprofen 800 mg 01/10/24 20:51 01/10/24 20:56 Ibuprofen 800 Mg Tablet PO 01/10/24 20:52 800 mg ONCE ONE Administration Metoclopramide HCl 10 mg 01/10/24 20:51 01/10/24 20:57 Metoclopramide Hcl Oral Soln 10 Mg/10 Ml Solution PO 01/10/24 20:52 Not Given ONCE ONE Tetracaine HCl 3 drop 01/10/24 20:30 01/10/24 20:53 Tetracaine Hcl/Pf 0.5% Oph Juliet 4 Ml Drops EYE-BOTH 01/10/24 20:31 3 drop ONCE ONE Administration Medical Decision Making Medical Decision Making MDM Narrative: 23-year-old female with history of migraine presents to ED for left-sided headache, eye pain, nausea, and vomiting. Patient states headache and nausea resolved while waiting in the waiting room. Patient denies vomiting in the waiting room. Eye exam negative for signs of corneal abrasion, corneal ulcer, dendrites, or signs of globe rupture. Eye exam negative for signs of episcleritis or scerlititis. Negative for any erythema of conjunctiva. Negative for hyphema. Left eye has some conjunctival hemorrhage. Right eye normal. Left eye pressure on tympanometry is a 6. Right eye normal and negative for signs of corneal abrasion corneal ulcer or globe rupture. Right eye pressure 5 on tonometry pen. Patient states pain relieved from eye after eye exam. Patient was given Motrin. Patient now has no eye pain patient alert oriented x3. Patient does not have any photophobia, nausea, or vomiting.. Most likely symptoms eye pain was due to migraine. Patient explained worrisome sign and informed to return to the ED if she has them. NIH score 0. Negative for any neuro deficits. Differential Diagnosis Differential Diagnoses: The differential diagnosis associated with the presentation includes Admission/Observation Consideration of admission/observation: Escalation of care including admission/observation considered Lab Data [facility] Lab Attestation statement: I reviewed the patient's lab results. Labs: Lab Results 01/10/24 Range/Units 16:25 Influenza Type A (PCR) NEGATIVE (Negative) Influenza Type B (PCR) NEGATIVE (Negative) RSV RNA Qual (PCR) NEGATIVE (Negative) SARS-CoV-2 RNA (RT-PCR) NEGATIVE (Negative) External Record Review External record reviewed: Other (prior visits) Prescription Management I considered prescription management with: Pain Medication Discharge Plan Discharge Clinical Impression: Migraine, Acute left eye pain, TYSON (subconjunctival hemorrhage) Patient Disposition: Home, Self-Care Instructions: Migraine Headache (ED), Subconjunctival Hemorrhage (ED), Eye Pain (ED) Additional Instructions: Return to the ED immediately for worsening eye pain, headache, nausea, vomiting, photophobia, neck stiffness, loss of vision, change in vision, fever, chills, eye drainage, eye redness, or any other concerning symptoms. Continue taking Advil that you have at home for headache/pain. Recommend follow-up with primary care provider Prescriptions: No Action Paxlovid 300 mg (150 mg x 2)-100 mg tablets,dose pack See Rx Instructions .ROUTE .COMPLEX Qty: 30 0RF Rx Instructions: take TWO 150 mg tablets of nirmatrelvir with ONE 100 mg tablet of ritonavir twice daily for 5 days albuterol sulfate 90 mcg/actuation HFA aerosol inhaler 2 puff inhalation Q4-6H PRN (Reason: shortness of breath or wheezing) Qty: 8.5 1RF albuterol sulfate 2.5 mg /3 mL (0.083 %) solution for nebulization 2.5 mg inhalation Q4-6H PRN (Reason: shortness of breath or wheezing) Qty: 75 0RF prednisone 50 mg tablet 50 mg PO DAILY Qty: 5 0RF cefdinir 300 mg capsule 300 mg PO BID 7 Days Qty: 14 0RF ciprofloxacin-dexamethasone [Ciprodex] 0.3-0.1 % drops,suspension 4 drp otic (ears) BID 7 Days Qty: 7.5 0RF doxycycline hyclate 100 mg tablet 100 mg PO BID 7 Days Qty: 14 0RF omeprazole 40 mg capsule,delayed release(DR/EC) 40 mg PO DAILY Qty: 30 0RF ondansetron 4 mg tablet,disintegrating 4 mg PO Q8H 3 Days Qty: 9 0RF cefuroxime axetil 500 mg tablet 500 mg PO BID 7 Days Qty: 14 0RF Stand Alone Forms: Work/School Release Interventions: ED Discharge Assessment Last Done: 01/10/24 21:58 Discharge Date/Time: 01/10/24 21:59 Print Language: Wallisian
[2024-01-10 21:58] VITALS: BP 112/60; PULSE 67; RESP 18; TEMP 36.9; O2SAT 98
== END 2024-01-10 21:59 | disposition home or self-care (01) ==
PROVIDERS: Registered Nurse Emergency; Emergency Provider Internal Medicine
DX: H11.32 Conjunctival hemorrhage, left eye (principal); H57.12 Ocular pain, left eye; G43.909 Migraine, unspecified, not intractable, without status migrainosus; Z11.52 Encounter for screening for COVID-19; Z20.828 Contact with and (suspected) exposure to other viral communicable diseases
CPT/HCPCS: 0241U; 99283; 99284

== ENCOUNTER 2024-01-18 23:16 | Emergency (ER) | payer MEDICAID, SELFPAY ==
[2024-01-18 23:41] VITALS: BP 117/66; PULSE 93; RESP 19; TEMP 37.2; O2SAT 96
[2024-01-18 23:43] VITALS: BMI 42.4
[2024-01-19 00:08] LABS: COVID-19 Test Negative (Negative); IDNOW Serial# 152EDE1D
[2024-01-19 00:11] LABS: IDNOW Serial# 08D9AD1C; Influenza A Positive (Negative); Influenza B2 Negative (Negative)
--- NOTE | 2024-01-19 01:24 | ED.URI ---
HPI - URI/Sore Throat General Chief Complaint: Nausea/Vomiting/Diarrhea Stated Complaint: flu like Time Seen by Provider: 01/19/24 01:16 Source: patient Mode of arrival: ambulatory Limitations: no limitations History of Present Illness HPI Narrative: Patient is a 23-year-old female who presents emergency department for evaluation nonproductive cough, tactile fever, nausea, vomiting, diarrhea and decreased oral intake for the past 2 days. Her friend is ill was recently diagnosed with influenza, they both work in a [place] [facility] [place] and report many of the residents have been ill as well. Denies dizziness, neck pain, neck stiffness, chest pain, shortness of breath, difficulty breathing, sore throat, abdominal pain, numbness or tingling of the extremities, genitourinary symptoms. Related Data Previous Rx's Medication Instructions Recorded ciprofloxacin 0.3 %-dexamethasone 4 drp otic (ears) BID 7 days #7.5 02/28/23 0.1 % ear drops,suspension mL (Ciprodex) doxycycline hyclate 100 mg tablet 100 mg PO BID 7 days #14 tabs 03/03/23 omeprazole 40 mg capsule,delayed 40 mg PO DAILY #30 caps 03/03/23 release ondansetron 4 mg disintegrating 4 mg PO Q8H 3 days #9 tabs 03/03/23 tablet albuterol sulfate 2.5 mg/3 mL 2.5 mg (3 mL) inhalation Q4-6H PRN 06/27/23 (0.083 %) solution for nebulization shortness of breath or wheezing #75 mL albuterol sulfate 90 mcg/actuation 2 puff inhalation Q4-6H PRN 06/27/23 aerosol inhaler shortness of breath or wheezing #8.5 grams nirmatrelvir 300 mg (150 mg See Rx Instructions PO .COMPLEX 06/27/23 x2)-ritonavir 100 mg tablet,dose #30 ea pack (Paxlovid) prednisone 50 mg tablet 50 mg PO DAILY #5 tabs 06/27/23 cefdinir 300 mg capsule 300 mg PO BID 7 days #14 caps 07/07/23 cefuroxime axetil 500 mg tablet 500 mg PO BID 7 days #14 tabs 12/26/23 Allergies Allergy/AdvReac Type Severity Reaction Status Date / Time Penicillins [PENICILLINS] Allergy Intermediate NASAL Verified 01/18/24 23:43 STUFFYNESS Review of Systems Review of Systems: Yes all other systems are reviewed and are negative REPLACED BY [facility] Past Medical History Attestation statement: The following information was validated with the patient. Source: old records reviewed Social History Social History Substance Use Type: Marijuana Advance Directives: No Advance Directives Information Provided: No Physical Exam Vital Signs: Vital Signs: Last Vital Signs Temp 98.9 F 01/19/24 01:35 Pulse 93 01/19/24 01:35 Resp 18 01/19/24 01:35 BP 117/66 01/19/24 01:35 Pulse Ox 96 01/19/24 01:35 O2 Del Method Room Air 01/19/24 01:35 BMI result Body Mass Index 42.4 Appearance: Alert.?Oriented to person, place and time. No acute distress.?Normal affect. Eyes: Pupils equal, round and reactive to light.? ENT: TM normal bilaterally. Pharynx normal.?? Neck: Normal inspection.? Neck supple.??No cervical adenopathy CVS: Heart sounds normal. Normal heart rate and rhythm.? Pulses normal.?? Respiratory: No respiratory distress.? Lung sounds clear to auscultation bilaterally?? Abdomen: Soft and non-tender. Normoactive bowel sounds. Skin: Skin warm and dry.? Normal skin color.? ? Extremities: No lower extremity edema.? Neuro: Moves all extremities spontaneously. Sensation intact bilaterally. No motor deficits. Ambulates with normal steady gait. Medical Decision Making Medical Decision Making MDM Narrative: Patient is a 23-year-old female, presenting for evaluation of upper respiratory symptoms. COVID-19 testing negative. Influenza testing positive, you shared decision-making, discussed indication for using potential side effects, patient is interested in treatment with Tamiflu, prescription was sent to her pharmacy. At this time history and physical exam not consistent with ACS/PE/pneumonia. Well-appearing, nontoxic, afebrile, no tachycardia or tachypnea/hypoxia. Speaking clear full sentences, ambulatory with steady gait. Discussed conservative treatment including rest, hydration, Tylenol/ibuprofen as needed for fever and body aches, saline nasal spray, humidifier, [id number] cold medication. Advised to follow-up with primary care provider as needed, discussed reasons to return back to the emergency department. All questions were answered. Patient discharged home in stable condition. Provided with a return to work/school note. Differential Diagnosis Differential Diagnoses: The differential diagnosis associated with the presentation includes ( See narrative above) Admission/Observation Consideration of admission/observation: Escalation of care including admission/observation considered ( see narrative above) Lab Data MDM Lab Attestation statement: I reviewed the patient's lab results. ( see narrative above) Labs: Lab Results 01/18/24 Range/Units 23:44 COVID-19 ([facility]ARRIE) Negative (Negative) COVID-19 Clin Com See Note Influenza Type A (PATIENCE) Positive A (Negative) Influenza Type B (PATIENCE) Negative (Negative) Influenza A & B Note See Note Independent Historian Clinical information obtained from an independent historian. History obtained from or confirmed by: Friend (Present who confirms history) Prescription Management I considered prescription management with: Pain Medication ( acetaminophen/ibuprofen) and Antiviral Discharge Plan Discharge Clinical Impression: Influenza A Patient Disposition: Home, Self-Care Instructions: Influenza (ED) Additional Instructions: Be sure to rest, stay well hydrated drinking plenty of fluids, eat small frequent meals. Tylenol/ibuprofen can be used as needed for fever/pain. Jrlv-hgu-[id number] cold medications may be helpful as well for symptoms. Saline nasal spray, humidifier may be helpful for nasal congestion. You may return to the emergency department with any new or worsening symptoms or concerns. Follow-up with your primary care provider as needed. Should remain out of school/ work until symptoms have resolved and have been without a fever for 24 hours without the use of Tylenol or ibuprofen. Prescriptions: No Action Paxlovid 300 mg (150 mg x 2)-100 mg tablets,dose pack See Rx Instructions .ROUTE .COMPLEX Qty: 30 0RF Rx Instructions: take TWO 150 mg tablets of nirmatrelvir with ONE 100 mg tablet of ritonavir twice daily for 5 days albuterol sulfate 90 mcg/actuation HFA aerosol inhaler 2 puff inhalation Q4-6H PRN (Reason: shortness of breath or wheezing) Qty: 8.5 1RF albuterol sulfate 2.5 mg /3 mL (0.083 %) solution for nebulization 2.5 mg inhalation Q4-6H PRN (Reason: shortness of breath or wheezing) Qty: 75 0RF prednisone 50 mg tablet 50 mg PO DAILY Qty: 5 0RF cefdinir 300 mg capsule 300 mg PO BID 7 Days Qty: 14 0RF ciprofloxacin-dexamethasone [Ciprodex] 0.3-0.1 % drops,suspension 4 drp otic (ears) BID 7 Days Qty: 7.5 0RF doxycycline hyclate 100 mg tablet 100 mg PO BID 7 Days Qty: 14 0RF omeprazole 40 mg capsule,delayed release(DR/EC) 40 mg PO DAILY Qty: 30 0RF ondansetron 4 mg tablet,disintegrating 4 mg PO Q8H 3 Days Qty: 9 0RF cefuroxime axetil 500 mg tablet 500 mg PO BID 7 Days Qty: 14 0RF Referrals: Physician,Unknown J [Primary Care Provider] - Stand Alone Forms: Work/School Release Interventions: ED Discharge Assessment Last Done: 01/19/24 01:35 Discharge Date/Time: 01/19/24 01:36
[2024-01-19 01:35] VITALS: BP 117/66; PULSE 93; RESP 18; TEMP 37.2; O2SAT 96
== END 2024-01-19 01:36 | disposition home or self-care (01) ==
PROVIDERS: Emergency Provider Student in an Organized Health Care Education/Training Program
DX: J10.1 Influenza due to other identified influenza virus with other respiratory manifestations (principal); R11.2 Nausea with vomiting, unspecified; R05.9 Cough, unspecified; R50.9 Fever, unspecified; Z11.52 Encounter for screening for COVID-19
CPT/HCPCS: 87502; 87635; 99282; 99283

== ENCOUNTER 2024-03-11 21:45 | Emergency (ER) | payer SELFPAY ==
[2024-03-11 21:54] VITALS: BP 106/59; PULSE 77; RESP 20; TEMP 36.6; O2SAT 96; BMI 40.4
== END 2024-03-12 00:26 | disposition left against medical advice (07) ==
PROVIDERS: Emergency Provider Emergency Medicine
DX: R51.9 Headache, unspecified (principal)
CPT/HCPCS: 99281

== ENCOUNTER 2024-04-24 04:35 | Emergency (ER) | payer SELFPAY ==
[2024-04-24 04:37] VITALS: BP 143/97; PULSE 102; RESP 18; TEMP 37.1; O2SAT 96; BMI 43.0
--- NOTE | 2024-04-24 04:53 | PC.NURSE ---
Pt placed in to ED Bed 3 from waiting room after triage. Dr. Henry at bedside speaking with patient. Patient's is also present at the bedside. This RN bandaged the laceration (right pinky finger) with gauze wrap, small amount of bleeding noted. Plan will likely be to place sutures.
--- NOTE | 2024-04-24 05:57 | ED_ITS ---
HPI - Wound/Laceration General Chief Complaint: Wound/Laceration Stated Complaint: finger lac Time Seen by Provider: 04/24/24 05:17 Source: patient Mode of arrival: ambulatory Limitations: no limitations History of Present Illness ED Provider: jenny HPI narrative: Patient's got intoxicated was cutting vegetables got a lac to her right 4th finger no other injury Related Data Previous Rx's ?Medication ?Instructions ?Recorded ciprofloxacin 0.3 %-dexamethasone 4 drp otic (ears) BID 7 days #7.5 02/28/23 0.1 % ear drops,suspension mL (Ciprodex) doxycycline hyclate 100 mg tablet 100 mg PO BID 7 days #14 tabs 03/03/23 omeprazole 40 mg capsule,delayed 40 mg PO DAILY #30 caps 03/03/23 release ondansetron 4 mg disintegrating 4 mg PO Q8H 3 days #9 tabs 03/03/23 tablet albuterol sulfate 2.5 mg/3 mL 2.5 mg (3 mL) inhalation Q4-6H PRN 06/27/23 (0.083 %) solution for nebulization shortness of breath or wheezing #75 mL albuterol sulfate 90 mcg/actuation 2 puff inhalation Q4-6H PRN 06/27/23 aerosol inhaler shortness of breath or wheezing #8.5 grams nirmatrelvir 300 mg (150 mg See Rx Instructions PO .COMPLEX 06/27/23 x2)-ritonavir 100 mg tablet,dose #30 ea pack (Paxlovid) prednisone 50 mg tablet 50 mg PO DAILY #5 tabs 06/27/23 cefdinir 300 mg capsule 300 mg PO BID 7 days #14 caps 07/07/23 cefuroxime axetil 500 mg tablet 500 mg PO BID 7 days #14 tabs 12/26/23 oseltamivir 75 mg capsule (Tamiflu) 75 mg PO BID 5 days #10 caps 01/19/24 Allergies Allergy/AdvReac Type Severity Reaction Status Date / Time Penicillins [PENICILLINS] Allergy Intermediate NASAL Verified 04/24/24 04:41 STUFFYNESS Review of Systems 2 Review of Systems: Yes all other systems are reviewed and are negative PMFSH Social History Social History Smoked in Last 30 Days: No Use of substances other than those prescribed or required for medical reasons: Yes Substance Use Type: Marijuana Substance Use Frequency: Chronic Longstanding Advance Directives: No Advance Directives Information Provided: No Patient : No Physical Exam 2 Vital Signs: Vital Signs: Last Vital Signs Temp 98.7 F 04/24/24 04:37 Pulse 102 H 04/24/24 04:37 Resp 18 04/24/24 04:37 BP 143/97 H 04/24/24 04:37 Pulse Ox 96 04/24/24 04:37 O2 Del Method Room Air 04/24/24 04:37 BMI result Body Mass Index 43.0 Extrem: Hand/finger images: 1. 2.5 cm laceration right 4th finger tendons intact Procedures Laceration Laceration 1: Site: hand (Right 4th finger) Side (If applicable): right Size (cm): 2.5 Description: linear Local Anesthetic: lidocaine 1% Amount of anesthesia used (mL): 2 Pre-repair: deep structures intact Skin layer closed with: nylon Size (cm): 5-0 Number of sutures: 6 Discharge Plan Discharge Clinical Impression: Laceration Patient Disposition: Home, Self-Care Instructions: Finger Laceration (ED) Additional Instructions: Local care as adv Suture removal in 10 days Wear the splint for support Prescriptions: No Action Paxlovid 300 mg (150 mg x 2)-100 mg tablets,dose pack See Rx Instructions .ROUTE .COMPLEX Qty: 30 0RF Rx Instructions: take TWO 150 mg tablets of nirmatrelvir with ONE 100 mg tablet of ritonavir twice daily for 5 days albuterol sulfate 90 mcg/actuation HFA aerosol inhaler 2 puff inhalation Q4-6H PRN (Reason: shortness of breath or wheezing) Qty: 8.5 1RF albuterol sulfate 2.5 mg /3 mL (0.083 %) solution for nebulization 2.5 mg inhalation Q4-6H PRN (Reason: shortness of breath or wheezing) Qty: 75 0RF prednisone 50 mg tablet 50 mg PO DAILY Qty: 5 0RF cefdinir 300 mg capsule 300 mg PO BID 7 Days Qty: 14 0RF oseltamivir [Tamiflu] 75 mg capsule 75 mg PO BID 5 Days Qty: 10 0RF ciprofloxacin-dexamethasone [Ciprodex] 0.3-0.1 % drops,suspension 4 drp otic (ears) BID 7 Days Qty: 7.5 0RF doxycycline hyclate 100 mg tablet 100 mg PO BID 7 Days Qty: 14 0RF omeprazole 40 mg capsule,delayed release(DR/EC) 40 mg PO DAILY Qty: 30 0RF ondansetron 4 mg tablet,disintegrating 4 mg PO Q8H 3 Days Qty: 9 0RF cefuroxime axetil 500 mg tablet 500 mg PO BID 7 Days Qty: 14 0RF Print Language: Barbadian
[2024-04-24] MEDS: Bacitracin Oint 0.9 GM PACKET 1 APPL TOPICAL (06:01)
[2024-04-24] MEDS: Lidocaine HCl 1 % MPF 5 ML VIAL INFILTRATI (06:04)
[2024-04-24 06:12] VITALS: BP 143/97; PULSE 102; RESP 18; TEMP 37.1; O2SAT 96
== END 2024-04-24 06:13 | disposition home or self-care (01) ==
PROVIDERS: Emergency Provider Internal Medicine
DX: S61.214A Laceration without foreign body of right ring finger without damage to nail, initial encounter (principal); M79.641 Pain in right hand; W26.0XXA Contact with knife, initial encounter; Y93.G3 Activity, cooking and baking; Y92.009 Unspecified place in unspecified non-institutional (private) residence as the place of occurrence of the external cause; Y99.8 Other external cause status
CPT/HCPCS: 12041; 99284

== ENCOUNTER 2024-05-02 00:16 | Emergency (ER) | payer SELFPAY ==
[2024-05-02 00:21] VITALS: BP 105/56; PULSE 76; RESP 16; TEMP 36.3; O2SAT 95; BMI 46.1
--- NOTE | 2024-05-02 00:45 | ED_ITS ---
HPI - General Adult General Chief complaint: General Medical Stated complaint: needs stitches removed Time Seen by Provider: 05/02/24 00:38 Source: patient Mode of arrival: ambulatory Limitations: no limitations History of Present Illness ED Provider: Dr. Evan Escudero HPI narrative: 24-year-old female who presents emergency department for evaluation of suture removal. Patient was seen in the emergency department on 04/24/2024 (8 days prior to evaluation) for a laceration to her right 4th finger which she sustained when she was cutting vegetables. Patient states that she has had no purulent discharge, she was able to move her finger and she has no numbness in her finger. Related Data Previous Rx's ?Medication ?Instructions ?Recorded ciprofloxacin 0.3 %-dexamethasone 4 drp otic (ears) BID 7 days #7.5 02/28/23 0.1 % ear drops,suspension mL (Ciprodex) doxycycline hyclate 100 mg tablet 100 mg PO BID 7 days #14 tabs 03/03/23 omeprazole 40 mg capsule,delayed 40 mg PO DAILY #30 caps 03/03/23 release ondansetron 4 mg disintegrating 4 mg PO Q8H 3 days #9 tabs 03/03/23 tablet albuterol sulfate 2.5 mg/3 mL 2.5 mg (3 mL) inhalation Q4-6H PRN 06/27/23 (0.083 %) solution for nebulization shortness of breath or wheezing #75 mL albuterol sulfate 90 mcg/actuation 2 puff inhalation Q4-6H PRN 06/27/23 aerosol inhaler shortness of breath or wheezing #8.5 grams nirmatrelvir 300 mg (150 mg See Rx Instructions PO .COMPLEX 06/27/23 x2)-ritonavir 100 mg tablet,dose #30 ea pack (Paxlovid) prednisone 50 mg tablet 50 mg PO DAILY #5 tabs 06/27/23 cefdinir 300 mg capsule 300 mg PO BID 7 days #14 caps 07/07/23 cefuroxime axetil 500 mg tablet 500 mg PO BID 7 days #14 tabs 12/26/23 oseltamivir 75 mg capsule (Tamiflu) 75 mg PO BID 5 days #10 caps 01/19/24 Allergies Allergy/AdvReac Type Severity Reaction Status Date / Time Penicillins [PENICILLINS] Allergy Intermediate NASAL Verified 05/02/24 00:24 STUFFYNESS [facility] Social History Social History Substance Use Type: Marijuana Physical Exam ED Vital Signs: Vital Signs - 24 hr 05/02/24 00:21 Temperature 97.4 F Pulse Rate 76 Respiratory Rate 16 Blood Pressure 105/56 L Pulse Oximetry 95 Oxygen Delivery Method Room Air BMI result Body Mass Index 46.1 Vital signs were normal Exam Right 4th finger exam: Patient has a laceration over the proximal interphalangeal crease on the ventral aspect of her finger, there are 6 nylon sutures that are in place. Patient has full range of motion her finger with normal strength and normal light touch sensory exam Procedures Procedure Narrative Procedure Narrative: Right 4th finger suture removal: Patient had 6 nylon sutures that were intact. Using a 11. Blade scalpel and forceps I was able to remove each stitch without any complications. The sutured wound is slightly open. Bacitracin and nonstick gauze dressing was applied. Medical Decision Making Medical Decision Making [facility] Narrative: 24-year-old female who presents emergency department for evaluation of suture removal from the right 4th finger, laceration was repaired here on 04/24/2024 (8 days prior). Patient's finger was neurovascularly intact. Differential diagnosis: ?Includes but is not limited to cellulitis, neurovascular injury Course: 00:51 Patient's finger was neurovascularly intact. Sutures were easily removed by me. Patient's wound was slightly opened and bacitracin was applied to the wound, nonstick dressing was applied over the bacitracin. Patient was given printed and verbal instructions and discharged home. Discharge Plan Discharge Clinical Impression: Visit for suture removal Patient Disposition: Home, Self-Care Instructions: Stitches Removal (ED) Additional Instructions: Follow the suture removal instructions above Prescriptions: No Action Paxlovid 300 mg (150 mg x 2)-100 mg tablets,dose pack See Rx Instructions .ROUTE .COMPLEX Qty: 30 0RF Rx Instructions: take TWO 150 mg tablets of nirmatrelvir with ONE 100 mg tablet of ritonavir t wice daily for 5 days albuterol sulfate 90 mcg/actuation HFA aerosol inhaler 2 puff inhalation Q4-6H PRN (Reason: shortness of breath or wheezing) Qty: 8.5 1RF albuterol sulfate 2.5 mg /3 mL (0.083 %) solution for nebulization 2.5 mg inhalation Q4-6H PRN (Reason: shortness of breath or wheezing) Qty: 75 0RF prednisone 50 mg tablet 50 mg PO DAILY Qty: 5 0RF cefdinir 300 mg capsule 300 mg PO BID 7 Days Qty: 14 0RF oseltamivir [Tamiflu] 75 mg capsule 75 mg PO BID 5 Days Qty: 10 0RF ciprofloxacin-dexamethasone [Ciprodex] 0.3-0.1 % drops,suspension 4 drp otic (ears) BID 7 Days Qty: 7.5 0RF doxycycline hyclate 100 mg tablet 100 mg PO BID 7 Days Qty: 14 0RF omeprazole 40 mg capsule,delayed release(DR/EC) 40 mg PO DAILY Qty: 30 0RF ondansetron 4 mg tablet,disintegrating 4 mg PO Q8H 3 Days Qty: 9 0RF cefuroxime axetil 500 mg tablet 500 mg PO BID 7 Days Qty: 14 0RF Print Language: Australian
[2024-05-02 00:52] VITALS: BP 114/57; PULSE 80; RESP 18; TEMP 36.7; O2SAT 96
[2024-05-02] MEDS: Bacitracin Oint 0.9 GM PACKET 1 APPL TOPICAL (00:54)
[2024-05-02 01:04] VITALS: BP 114/57; PULSE 80; RESP 18; TEMP 36.7; O2SAT 96
== END 2024-05-02 01:04 | disposition home or self-care (01) ==
PROVIDERS: Emergency Provider Emergency Medicine Emergency Medical Services
DX: Z48.02 Encounter for removal of sutures (principal)
CPT/HCPCS: 99283; 99284

== ENCOUNTER 2024-06-10 12:48 | Emergency (ER) | payer SELFPAY ==
--- NOTE | ~2024-06-10 | US_ITS ---
EXAMINATION: US VENOUS ULTRASOUND WITH DOPPLER LOWER EXTREMITY, RIGHT CLINICAL INFORMATION: Calf pain. COMPARISON: None available. TECHNIQUE: Ultrasound of the deep veins is performed from the hip to the calf with compression sonography and color and pulse Doppler assessment. Spectral analysis with color-flow imaging is performed. FINDINGS: There is normal venous compression and respiratory variation and augmented flow. The visualized common femoral vein, superficial femoral vein, profunda femoral vein, popliteal vein, and the trifurcation region shows no evidence of deep venous thrombosis. There is no significant popliteal fossa cyst. If the patient's symptoms persist, followup ultrasound in 5 days 7 days might be of value to exclude proximal propagation from a non-visualized calf vein. US/US venous duplex LE RT IMPRESSION: No DVT demonstrated in the right lower extremity.
[2024-06-10 12:53] VITALS: BP 144/88; PULSE 84; O2SAT 97
[2024-06-10 12:55] VITALS: BP 120/81; PULSE 80; RESP 20; TEMP 37; O2SAT 97; BMI 46.9
--- NOTE | 2024-06-10 12:55 | ED.GENADULT ---
HPI - General Adult General Chief complaint: Extremity Injury, Lower Stated complaint: R CALF PAIN PER EMS Time Seen by Provider: 06/10/24 12:54 Source: patient Mode of arrival: EMS Limitations: no limitations History of Present Illness ED Provider: Ceila Jewell PA-C HPI narrative: This is a 24-year-old female, with no known medical problems, who presents emergency department with complaints of right leg cramp x2 hours. Patient states that she has had intermittent leg cramps for the last month however states that when she was sleeping she awoke with sudden right-sided calf pain. She states that the pain comes and goes in waves however reports that they are very severe. She denies any chest pain or shortness for breath. No injury to her leg. No recent travel, surgery, hospitalizations or surgeries. She is not on control. No other complaints or concerns at this time. MD complaint: Right calf pain Onset (ago): hour(s) Location: lower extremity Radiation: non-radiation Severity: moderate Quality: aching Pain Consistency: constant Relieving factors: none Exacerbating factors: none Associated symptoms: denies other symptoms Treatments prior to arrival: none Related Data Previous Rx's ?Medication ?Instructions ?Recorded ciprofloxacin 0.3 %-dexamethasone 4 drp otic (ears) BID 7 days #7.5 02/28/23 0.1 % ear drops,suspension mL (Ciprodex) doxycycline hyclate 100 mg tablet 100 mg PO BID 7 days #14 tabs 03/03/23 omeprazole 40 mg capsule,delayed 40 mg PO DAILY #30 caps 03/03/23 release ondansetron 4 mg disintegrating 4 mg PO Q8H 3 days #9 tabs 03/03/23 tablet albuterol sulfate 2.5 mg/3 mL 2.5 mg (3 mL) inhalation Q4-6H PRN 06/27/23 (0.083 %) solution for nebulization shortness of breath or wheezing #75 mL albuterol sulfate 90 mcg/actuation 2 puff inhalation Q4-6H PRN 06/27/23 aerosol inhaler shortness of breath or wheezing #8.5 grams nirmatrelvir 300 mg (150 mg See Rx Instructions PO .COMPLEX 06/27/23 x2)-ritonavir 100 mg tablet,dose #30 ea pack (Paxlovid) prednisone 50 mg tablet 50 mg PO DAILY #5 tabs 06/27/23 cefdinir 300 mg capsule 300 mg PO BID 7 days #14 caps 07/07/23 cefuroxime axetil 500 mg tablet 500 mg PO BID 7 days #14 tabs 12/26/23 oseltamivir 75 mg capsule (Tamiflu) 75 mg PO BID 5 days #10 caps 01/19/24 acetaminophen 500 mg tablet 1,000 mg (2 x 500 mg) PO Q8H PRN 06/10/24 (Tylenol Extra Strength) pain #30 tabs cyclobenzaprine 10 mg tablet 10 mg PO TID PRN muscle spasm #10 06/10/24 tabs ibuprofen 600 mg tablet 600 mg PO Q6H PRN pain #30 tabs 06/10/24 Allergies Allergy/AdvReac Type Severity Reaction Status Date / Time Penicillins [PENICILLINS] Allergy Intermediate NASAL Verified 06/10/24 13:00 STUFFYNESS Review of Systems Review of Systems: ROS as per HPI Yes all other systems are reviewed and are negative Constitutional: Constitutional: Reports as per HPI [facility] Past Medical History Attestation statement: The following information was validated with the patient. Social History Social History Substance Use Type: Marijuana Advance Directives: No Advance Directives Information Provided: Yes Physical Exam ED Vital Signs: Vital Signs - 24 hr 06/10/24 12:55 06/10/24 16:27 06/10/24 17:17 Temperature 98.6 F 98.2 F 98.2 F Pulse Rate 80 83 83 Respiratory Rate 20 18 18 Blood Pressure 120/81 118/68 118/68 Pulse Oximetry 97 97 97 Oxygen Delivery Method Room Air Room Air Room Air BMI result Body Mass Index 46.9 Const General: cooperative, comfortable and no acute distress Orientation/consciousness: patient oriented x3 Limitations: no limitations HENMT Head: Yes normal to inspection, Yes normocephalic and Yes atraumatic Ears: hearing grossly normal bilaterally General nose exam: Normal external nose present Face and sinus: Yes normal facial exam Mouth: Normal oral and palatal mucosa present, oropharynx normal and moist mucous membranes Throat: Yes posterior oropharynx normal Eyes General: appearance normal, both eyes and all related structures Eyelids: Yes eyelids normal Conjunctivae: conjunctivae normal Sclerae: sclerae normal Pupils: Equal, round and reactive pupils present EOM: EOMs intact bilaterally Neck Neck: Yes normal visual inspection, Yes full ROM and Yes no lymphadenopathy Lymphatic: no lymphadenopathy noted Chest Chest palpation & inspection: normal inspection of the chest Resp Effort & Inspection: normal respiratory effort and able to speak in complete sentences Auscultation: clear to auscultation bilaterally, no crackles, no rales, no rhonchi and no wheezes Cardio Rate: regular rate Rhythm: regular rhythm Heart sounds: S1 normal heart sound present and S2 normal heart sound present GI Inspection: Yes normal to inspection Skin General skin exam: no rashes or lesions noted Trauma: no lacerations or abrasions Wounds: no wounds Neuro General: patient oriented x3 and moves all extremities Cranial nerves: Yes Equal, round and reactive pupils present Extrem Other: Right calf with no overlying erythema or warmth, with tenderness palpation, no palpable masses present, Achilles tendon is intact. Strong DP pulse extremities well perfused. Capillary refill less than 2 seconds. Extremity is warm. General: Yes normal to inspection Right upper extremity: normal to inspection Left upper extremity: normal to inspection Right lower extremity: normal to inspection Left lower extremity: normal to inspection Course Reevaluation(s) Reevaluation #1: No DVT present, patient's symptoms have resolved after receiving Toradol, and morphine orally. Symptoms likely attributed to a muscle spasm. Labs show slight leukocytosis at 13.4, likely reactive, CPK slightly elevated 167, not consistent with rhabdo. Given return precautions. She is stable for discharge. Medications Administered Discontinued Medications Generic Name Dose Route Start Last Admin Trade Name Sara PRN Reason Stop Dose Admin Diazepam 2 mg 06/10/24 14:37 06/10/24 15:25 Diazepam 2 Mg Tablet PO 06/10/24 14:38 Not Given ONCE ONE Ketorolac Tromethamine 30 mg 06/10/24 12:57 06/10/24 13:01 Ketorolac Tromethamine 30 Mg/Ml Vial IM 06/10/24 12:58 30 mg ONCE ONE Administration Morphine Sulfate 15 mg 06/10/24 13:52 06/10/24 14:10 Morphine Sulfate Immed Release 15 Mg Tablet PO 06/10/24 13:53 15 mg ONCE ONE Administration Medical Decision Making Medical Decision Making MDM Narrative: This is a 24-year-old female who presents emergency department complaints of right calf pain x2 hours. On arrival, patient appears uncomfortable secondary to muscle cramps. She is PERC negative. She has no chest pain or shortness of breath. Given atraumatic right calf pain, will obtain ultrasound as well as basic labs to rule out any electrolyte derangement. Will treat with Toradol. She has a strong DP pulse. Differential Diagnosis Differential Diagnoses: The differential diagnosis associated with the presentation includes Electrolyte derangement, muscle spasm, rhabdomyolysis, DVT Admission/Observation Consideration of admission/observation: Escalation of care including admission/observation considered Lab Data [facility] Lab Attestation statement: I reviewed the patient's lab results. See [facility] 06/10/24 13:18 06/10/24 13:18 Labs: Lab Results 06/10/24 Range/Units 13:18 WBC 13.4 H (4.8-10.8) X10*3/uL RBC 5.45 (4.20-5.50) X10*6/uL Hgb 14.7 (12.0-16.0) g/dl Hct 44.7 (37.0-47.0) % MCV 82.0 (80.0-98.0) fL MCH 27.0 (27.0-33.0) pg MCHC 32.9 (31.0-35.0) g/dl RDW 15.9 (11.0-16.0) % Plt Count 240 (160-400) X10*3/uL MPV 12.3 (9.4-12.3) fL Immature Gran % (Auto) 0.4 (0.0-0.4) % Neut % (Auto) 77.9 H (45-73) % Lymph % (Auto) 14.1 L (20-40) % [place] % (Auto) 6.4 (2-11) % Eos % (Auto) 0.7 (0-4) % Baso % (Auto) 0.5 (0-2) % Lymph # (Auto) 1.9 (1.2-4.9) X10*3/uL [place] # (Auto) 0.9 (0.1-1.2) X10*3/uL Eos # (Auto) 0.1 (0.0-0.4) X10*3/uL Baso # (Auto) 0.1 (0.0-0.2) X10*3/uL Abs Immat Gran (auto) 0.05 H (0.00-0.03) X10*3/uL Absolute Neuts (auto) 10.5 H (2.0-8.3) x10*3/uL Absolute Nucleated RBC 0.000 (0.0-0.012) X10*3/uL Nucleated RBC % (auto) 0.0 (0.0-0.2) /100WBC Sodium 140 (135-145) mmol/L Potassium 4.3 (3.3-5.1) mmol/L Chloride 108 (96-108) mmol/L Carbon Dioxide 22 (22-29) mmol/L Anion Gap 14 (12-20) BUN 10 (9-16) mg/dL Creatinine 0.79 (0.5-1.4) mg/dL Estim Creat Clear Calc 124.9 Estimated GFR > 60 Random Glucose 108 (60-115) mg/dL Calcium 9.7 (8.4-10.2) mg/dL Magnesium 2.0 (1.6-2.6) mg/dL Total Bilirubin 0.3 (0.0-1.0) mg/dL AST 22 (5-31) U/L ALT 24 (0-31) U/L Alkaline Phosphatase 100 (39-117) U/L Total Creatine Kinase 167 H (26-140) U/L Total Protein 7.3 (6.5-8.0) g/dL Albumin 4.6 (3.5-5.0) g/dL Radiology Impression Discussion of test interpretation with radiology: I have reviewed the radiologist's reading. Radiologist Impression: FINDINGS: There is normal venous compression and respiratory variation and augmented flow. The visualized common femoral vein, superficial femoral vein, profunda femoral vein, popliteal vein, and the trifurcation region shows no evidence of deep venous thrombosis. There is no significant popliteal fossa cyst. If the patient's symptoms persist, followup ultrasound in 5 days 7 days might be of value to exclude proximal propagation from a non-visualized calf vein. US/US venous duplex LE RT IMPRESSION: No DVT demonstrated in the right lower extremity. Dictated By: Bradley Chandler Jr, DO External Record Review External record reviewed: Outside ED record Discharge Plan Discharge Clinical Impression: Pain of right calf Patient Disposition: Home, Self-Care Instructions: Leg Cramps (ED), Leg Pain (ED) Additional Instructions: Your seen in the emergency department due to leg cramping. Your lab work, and ultrasound were reassuring. Please rest, gentle range of motion and stretching can be beneficial. Alternate between ibuprofen and Tylenol as needed. May take muscle relaxants, Flexeril as needed for spasm like pain. Please follow-up with your primary care physician. Stay well hydrated. If any new or worsening symptoms occur including but not limited to worsening calf pain, redness, swelling, please return for re-evaluation. Prescriptions: New ibuprofen 600 mg tablet 600 mg PO Q6H PRN (Reason: pain) Qty: 30 0RF acetaminophen [Tylenol Extra Strength] 500 mg tablet 1,000 mg PO Q8H PRN (Reason: pain) Qty: 30 0RF cyclobenzaprine 10 mg tablet 10 mg PO TID PRN (Reason: muscle spasm) Qty: 10 0RF No Action Paxlovid 300 mg (150 mg x 2)-100 mg tablets,dose pack See Rx Instructions .ROUTE .COMPLEX Qty: 30 0RF Rx Instructions: take TWO 150 mg tablets of nirmatrelvir with ONE 100 mg tablet of ritonavir twice daily for 5 days albuterol sulfate 90 mcg/actuation HFA aerosol inhaler 2 puff inhalation Q4-6H PRN (Reason: shortness of breath or wheezing) Qty: 8.5 1RF albuterol sulfate 2.5 mg /3 mL (0.083 %) solution for nebulization 2.5 mg inhalation Q4-6H PRN (Reason: shortness of breath or wheezing) Qty: 75 0RF prednisone 50 mg tablet 50 mg PO DAILY Qty: 5 0RF cefdinir 300 mg capsule 300 mg PO BID 7 Days Qty: 14 0RF oseltamivir [Tamiflu] 75 mg capsule 75 mg PO BID 5 Days Qty: 10 0RF ciprofloxacin-dexamethasone [Ciprodex] 0.3-0.1 % drops,suspension 4 drp otic (ears) BID 7 Days Qty: 7.5 0RF doxycycline hyclate 100 mg tablet 100 mg PO BID 7 Days Qty: 14 0RF omeprazole 40 mg capsule,delayed release(DR/EC) 40 mg PO DAILY Qty: 30 0RF ondansetron 4 mg tablet,disintegrating 4 mg PO Q8H 3 Days Qty: 9 0RF cefuroxime axetil 500 mg tablet 500 mg PO BID 7 Days Qty: 14 0RF Stand Alone Forms: Work/School Release Interventions: ED Discharge Assessment Last Done: 06/10/24 17:17 Discharge Date/Time: 06/10/24 17:17 Print Language: Lao
[2024-06-10] MEDS: Ketorolac Tromethamine 30 MG/ML VIAL IM (13:01)
[2024-06-10 13:24] LABS: MANUAL DIFF FLAG NO
[2024-06-10 13:27] LABS: Basophils Absolute Auto 0.1 X10*3/uL (0.0-0.2); Basophils Percent Auto 0.5 % (0-2); Eosinophils Absolute Auto 0.1 X10*3/uL (0.0-0.4); Eosinophils Percent Auto 0.7 % (0-4); Hematocrit 44.7 % (37.0-47.0); Hemoglobin 14.7 g/dl (12.0-16.0); Imm Gran Abs Auto 0.05 X10*3/uL (0.00-0.03); Imm Gran Pct Auto 0.4 % (0.0-0.4); Lymphocytes Absolute Auto 1.9 X10*3/uL (1.2-4.9); Lymphocytes Percent Auto 14.1 % (20-40); Mean Corpuscular HGB Conc 32.9 g/dl (31.0-35.0); Mean Platelet Volume 12.3 fL (9.4-12.3); Monocytes Absolute Auto 0.9 X10*3/uL (0.1-1.2); Monocytes Percent Auto 6.4 % (2-11); Neutrophils Absolute Auto 10.5 x10*3/uL (2.0-8.3); Neutrophils Percent Auto 77.9 % (45-73); Platelet Count 240 X10*3/uL (160-400); Red Blood Count 5.45 X10*6/uL (4.20-5.50); Red Cell Distribution Width 15.9 % (11.0-16.0); White Blood Count 13.4 X10*3/uL (4.8-10.8)
[2024-06-10 14:02] LABS: Alanine Aminotransferase 24 U/L (0-31); Albumin Level 4.6 g/dL (3.5-5.0); Alkaline Phosphatase 100 U/L (39-117); Anion Gap 14 (12-20); Aspartate Amino Transferase 22 U/L (5-31); Bilirubin Total 0.3 mg/dL (0.0-1.0); Blood Urea Nitrogen 10 mg/dL (9-16); Calcium 9.7 mg/dL (8.4-10.2); Carbon Dioxide 22 mmol/L (22-29); Chloride 108 mmol/L (96-108); Creatinine Clr Calc Pharmacy 124.9; Estimated Glomerular Filt Rate > 60; Glucose Random 108 mg/dL (60-115); Potassium 4.3 mmol/L (3.3-5.1); Sodium 140 mmol/L (135-145); Total Protein 7.3 g/dL (6.5-8.0)
[2024-06-10] MEDS: Morphine Sulfate Immed Release 15 MG TABLET PO (14:10)
[2024-06-10 16:27] VITALS: BP 118/68; PULSE 83; RESP 18; TEMP 36.8; O2SAT 97
[2024-06-10 17:17] VITALS: BP 118/68; PULSE 83; RESP 18; TEMP 36.8; O2SAT 97
== END 2024-06-10 17:17 | disposition home or self-care (01) ==
PROVIDERS: Physician Assistant Medical; Emergency Provider Emergency Medicine
DX: M79.661 Pain in right lower leg (principal)
CPT/HCPCS: 36415; 80053; 82550; 83735; 85025; 93971; 96372; 99283; 99284; J1885

== ENCOUNTER 2024-11-16 23:07 | Emergency (ER) | payer SELFPAY ==
[2024-11-16 23:09] VITALS: BP 124/50; PULSE 90; RESP 18; TEMP 36.8; O2SAT 97; BMI 37.1
[2024-11-16] MEDS: Ondansetron ODT 4 MG TAB.RAPDIS TRANSLINGU (23:14)
[2024-11-17 00:27] LABS: Influenza A PCR NEGATIVE (Negative); Influenza B PCR POSITIVE (Negative); Resp Syncy Virus RNA Qual PCR NEGATIVE (Negative); SARS COV2 PCR INHOUSE NEGATIVE (Negative)
--- NOTE | 2024-11-17 00:37 | ED.GENADULT ---
HPI - General Adult General Chief complaint: Upper Respiratory Symptoms Stated complaint: flu symptoms? Time Seen by Provider: 11/17/24 00:37 Source: patient Mode of arrival: ambulatory Limitations: no limitations History of Present Illness ED Provider: Fitz Olivo HPI narrative: 24 yold female with no pmh presents to the ED for URI symptoms. patient states her first had symptoms and tested positive for flu and now she is sick. Headache nausea vomiting body aches for 1 day Related Data Previous Rx's ?Medication ?Instructions ?Recorded ciprofloxacin 0.3 %-dexamethasone 4 drp otic (ears) BID 7 days #7.5 02/28/23 0.1 % ear drops,suspension mL (Ciprodex) doxycycline hyclate 100 mg tablet 100 mg PO BID 7 days #14 tabs 03/03/23 omeprazole 40 mg capsule,delayed 40 mg PO DAILY #30 caps 03/03/23 release ondansetron 4 mg disintegrating 4 mg PO Q8H 3 days #9 tabs 03/03/23 tablet albuterol sulfate 2.5 mg/3 mL 2.5 mg (3 mL) inhalation Q4-6H PRN 06/27/23 (0.083 %) solution for nebulization shortness of breath or wheezing #75 mL albuterol sulfate 90 mcg/actuation 2 puff inhalation Q4-6H PRN 06/27/23 aerosol inhaler shortness of breath or wheezing #8.5 grams nirmatrelvir 300 mg (150 mg See Rx Instructions PO .COMPLEX 06/27/23 x2)-ritonavir 100 mg tablet,dose #30 ea pack (Paxlovid) prednisone 50 mg tablet 50 mg PO DAILY #5 tabs 06/27/23 cefdinir 300 mg capsule 300 mg PO BID 7 days #14 caps 07/07/23 cefuroxime axetil 500 mg tablet 500 mg PO BID 7 days #14 tabs 12/26/23 oseltamivir 75 mg capsule (Tamiflu) 75 mg PO BID 5 days #10 caps 01/19/24 acetaminophen 500 mg tablet 1,000 mg (2 x 500 mg) PO Q8H PRN 06/10/24 (Tylenol Extra Strength) pain #30 tabs cyclobenzaprine 10 mg tablet 10 mg PO TID PRN muscle spasm #10 06/10/24 tabs ibuprofen 600 mg tablet 600 mg PO Q6H PRN pain #30 tabs 06/10/24 oseltamivir 75 mg capsule (Tamiflu) 75 mg PO BID 5 days #10 caps 11/17/24 Allergies Allergy/AdvReac Type Severity Reaction Status Date / Time Penicillins [PENICILLINS] Allergy Intermediate NASAL Verified 11/16/24 23:10 STUFFYNESS Review of Systems Review of Systems: Headache body aches nausea or vomiting Yes all other systems are reviewed and are negative [facility] Social History Social History Substance Use Type: Marijuana Advance Directives: No Advance Directives Information Provided: Yes Do you have a plan to hurt others: No Plan Physical Exam ED Vital Signs: Vital Signs - 24 hr 11/16/24 23:09 11/17/24 01:10 Temperature 98.3 F 98.3 F Pulse Rate 90 90 Respiratory Rate 18 18 Blood Pressure 124/50 L 124/50 L Pulse Oximetry 97 97 Oxygen Delivery Method Room Air Room Air BMI result Body Mass Index 37.1 Const General: cooperative, healthy appearing, comfortable, no acute distress, well developed, alert, awake and Physically active Orientation/consciousness: patient oriented x3 HENMT Head: Yes normal to inspection, Yes No palpable skull fracture present, Yes normocephalic and Yes atraumatic Throat: Yes posterior oropharynx normal, Yes tonsils normal and Yes uvula midline Eyes General: appearance normal, both eyes and all related structures Neck Neck: Yes normal visual inspection, Yes full ROM, Yes no lymphadenopathy, Yes no meningeal signs, Yes trachea midline, Yes supple, No anterior neck swelling and No tender Chest Chest palpation & inspection: normal inspection of the chest and normal palpation of entire chest wall Resp Effort & Inspection: normal respiratory effort and able to speak in complete sentences Auscultation: clear to auscultation bilaterally Cardio Jugular venous distension: no JVD Heart sounds: S1 normal heart sound present and S2 normal heart sound present GI Inspection: Yes normal to inspection Palpation (GI): Soft to palpation, not firm, nontender, no guarding and not rigid General: Yes no CVA tenderness Back/Spine/Pelvis Back: no CVA tenderness and No back tenderness Skin General skin exam: no rashes or lesions noted, elasticity normal and turgor normal Neuro General: patient oriented x3, gait normal, tone normal, moves all extremities, Normal light touch and pain sensation, no meningeal signs, no focal motor deficits, CN's II-XI intact bilaterally and normal sensation to monofilament Extrem General: Yes normal to inspection, Yes full ROM and Yes capillary refill normal Psych Appearance: grossly normal, well kempt and not disheveled Medications Administered Discontinued Medications Generic Name Dose Route Start Last Admin Trade Name Sara PRN Reason Stop Dose Admin Ondansetron HCl 4 mg 11/16/24 23:13 11/16/24 23:14 Ondansetron Odt 4 Mg Tab.Rapdis TRANSLINGU 11/16/24 23:14 4 mg ONCE ONE Administration Medical Decision Making Medical Decision Making [facility] Narrative: 24-year-old female presents to ED for URI symptoms. Patient's partner tested positive for flu. Influenza positive. Patient will be discharged with Tamiflu. Patient not in any respiratory distress. Patient explained worrisome signs and informed to return to the ED immediately Differential Diagnosis Differential Diagnoses: The differential diagnosis associated with the presentation includes (COVID RSV influenza) Admission/Observation Consideration of admission/observation: Escalation of care including admission/observation considered Lab Data [facility] Lab Attestation statement: I reviewed the patient's lab results. Labs: Lab Results 11/16/24 Range/Units 23:44 Influenza Type A (PCR) NEGATIVE (Negative) Influenza Type B (PCR) POSITIVE A (Negative) RSV RNA Qual (PCR) NEGATIVE (Negative) SARS-CoV-2 RNA (RT-PCR) NEGATIVE (Negative) Independent Historian Clinical information obtained from an independent historian. History obtained from or confirmed by: Other (Patient) Prescription Management I considered prescription management with: Other (Tamiflu) Discharge Plan Discharge Clinical Impression: Influenza Patient Disposition: Home, Self-Care Instructions: Influenza (ED) Additional Instructions: Recommend follow-up with primary care provider. Return to the ED immediately for any chest pain, shortness of breath, weakness, dizziness, or any other concerning symptoms. Prescriptions: New oseltamivir [Tamiflu] 75 mg capsule 75 mg PO BID 5 Days Qty: 10 0RF No Action Paxlovid 300 mg (150 mg x 2)-100 mg tablets,dose pack See Rx Instructions .ROUTE .COMPLEX Qty: 30 0RF Rx Instructions: take TWO 150 mg tablets of nirmatrelvir with ONE 100 mg tablet of ritonavir twice daily for 5 days albuterol sulfate 90 mcg/actuation HFA aerosol inhaler 2 puff inhalation Q4-6H PRN (Reason: shortness of breath or wheezing) Qty: 8.5 1RF albuterol sulfate 2.5 mg /3 mL (0.083 %) solution for nebulization 2.5 mg inhalation Q4-6H PRN (Reason: shortness of breath or wheezing) Qty: 75 0RF prednisone 50 mg tablet 50 mg PO DAILY Qty: 5 0RF cefdinir 300 mg capsule 300 mg PO BID 7 Days Qty: 14 0RF oseltamivir [Tamiflu] 75 mg capsule 75 mg PO BID 5 Days Qty: 10 0RF ciprofloxacin-dexamethasone [Ciprodex] 0.3-0.1 % drops,suspension 4 drp otic (ears) BID 7 Days Qty: 7.5 0RF doxycycline hyclate 100 mg tablet 100 mg PO BID 7 Days Qty: 14 0RF omeprazole 40 mg capsule,delayed release(DR/EC) 40 mg PO DAILY Qty: 30 0RF ondansetron 4 mg tablet,disintegrating 4 mg PO Q8H 3 Days Qty: 9 0RF cefuroxime axetil 500 mg tablet 500 mg PO BID 7 Days Qty: 14 0RF ibuprofen 600 mg tablet 600 mg PO Q6H PRN (Reason: pain) Qty: 30 0RF acetaminophen [Tylenol Extra Strength] 500 mg tablet 1,000 mg PO Q8H PRN (Reason: pain) Qty: 30 0RF cyclobenzaprine 10 mg tablet 10 mg PO TID PRN (Reason: muscle spasm) Qty: 10 0RF Stand Alone Forms: Work/School Release Interventions: ED Discharge Assessment Last Done: 11/17/24 01:10 Discharge Date/Time: 11/17/24 01:10 Print Language: Canadian
--- NOTE | 2024-11-17 00:47 | PC.NURSE ---
PA to triage for eval, pt Flu B+ cleared for dc home.
[2024-11-17 01:10] VITALS: BP 124/50; PULSE 90; RESP 18; TEMP 36.8; O2SAT 97
== END 2024-11-17 01:10 | disposition home or self-care (01) ==
LOC: HO.ED 11-17 00:52
PROVIDERS: Emergency Provider Emergency Medicine
DX: J10.1 Influenza due to other identified influenza virus with other respiratory manifestations (principal); R51.9 Headache, unspecified; R11.2 Nausea with vomiting, unspecified; Z03.818 Encounter for observation for suspected exposure to other biological agents ruled out
CPT/HCPCS: 0241U; 99282; 99283

== ENCOUNTER 2025-07-24 16:22 | Emergency (ER) | payer SELFPAY ==
[2025-07-24 16:43] VITALS: BP 118/56; PULSE 80; RESP 16; TEMP 36.9; O2SAT 97; BMI 40.7
--- NOTE | 2025-07-24 16:49 | ED_ITS ---
HPI - General Adult General Chief complaint: Ear Problems Stated complaint: Earache, headache Time Seen by Provider: 07/24/25 18:53 Source: patient Mode of arrival: ambulatory Limitations: no limitations History of Present Illness ED Provider: Aundrea Odonnell PA-C HPI narrative: Patient is a 25 year old assigned female at with no reported medical history presenting to the emergency department today with bilateral ear pain - left worse than right. Patient states that she has been having bilateral ear pain with nasal congestion the last 2 days, worse after a flight. Patient denies any other complaints at this time. Related Data Previous Rx's ?Medication ?Instructions ?Recorded ciprofloxacin 0.3 %-dexamethasone 4 drp otic (ears) BI D 7 days #7.5 02/28/23 0.1 % ear drops,suspension mL (Ciprodex) doxycycline hyclate 100 mg tablet 100 mg PO BID 7 days #14 tabs 03/03/23 omeprazole 40 mg capsule,delayed 40 mg PO DAILY #30 ca ps 03/03/23 release ondansetron 4 mg disintegrating 4 mg PO Q8H 3 days #9 tabs 03/03/23 tablet albuterol sulfate 2.5 mg/3 mL 2.5 mg (3 mL) inhalation Q4-6H PRN 06/27/23 (0.083 %) solution for nebulization shortness of breat h or wheezing #75 mL albuterol sulfate 90 mcg/actuation 2 puff inhalation Q 4-6H PRN 06/27/23 aerosol inhaler shortness of breath or wheez ing #8.5 grams nirmatrelvir 300 mg (150 mg See Rx Instructions PO .CO MPLEX 06/27/23 x2)-ritonavir 100 mg tablet,dose #30 ea pack (Paxlovid) prednisone 50 mg tablet 50 mg PO DAILY #5 tabs 06/27 cefdinir 300 mg capsule 300 mg PO BID 7 days #14 cap s 07/07/23 cefuroxime axetil 500 mg tablet 500 mg PO BID 7 days # 14 tabs 12/26/23 oseltamivir 75 mg capsule (Tamiflu) 75 mg PO BID 5 day s #10 caps 01/19/24 acetaminophen 500 mg tablet 1,000 mg (2 x 500 mg) PO Q 8H PRN 06/10/24 (Tylenol Extra Strength) pain #30 tabs cyclobenzaprine 10 mg tablet 10 mg PO TID PRN muscle s pasm #10 06/10/24 tabs ibuprofen 600 mg tablet 600 mg PO Q6H PRN pain #30 t abs 06/10/24 oseltamivir 75 mg capsule (Tamiflu) 75 mg PO BID 5 day s #10 caps 11/17/24 oseltamivir 75 mg capsule (Tamiflu) 75 mg PO BID 5 day s #10 caps 11/17/24 azithromycin 250 mg tablet See Rx Instructions PO .COM PLEX #6 07/24/25 tabs Allergies Allergy/AdvReac Type Severity Reaction Status Date / Time Penicillins (PENICILLINS) Allergy Intermediate NASAL Verified 07/24/25 16:45 STUFFYNESS Review of Systems Constitutional: Constitutional: Reports as per HPI Eyes: Eyes: Reports as per HPI ENT: Reports as per HPI Cardiovascular: Cardiovascular: Reports as per HPI Respiratory: Respiratory: Reports as per HPI Gastrointestinal: Gastrointestinal: Reports as per HPI Genitourinary: Genitourinary: Reports as per HPI Musculoskeletal: Musculoskeletal: Reports as per HPI Integumentary/Breasts: Skin/Breast: Reports as per HPI Neurologic: Reports as per HPI Psychiatric: Psychiatric: Reports as per HPI Endocrine: Endocrine: Reports as per HPI Hematologic/Lymphatic: Hematologic/Lymphatic: Reports as per HPI Allergic/Immunologic: Allergic/Immunologic: Reports as per HPI [facility] Past Medical History Attestation statement: The following information was validated with the patient. Source: old records reviewed and nursing notes reviewed Social History Social History Substance Use Type: Marijuana Advance Directives: No Advance Directives Information Provided: No Do you have a plan to hurt others: No Plan Physical Exam ED Vital Signs: Vital Signs - 24 hr 07/24/25 16:43 Temperature 98.4 F Pulse Rate 80 Respiratory Rate 16 Blood Pressure 118/56 L Pulse Oximetry 97 Oxygen Delivery Method Room Air BMI result Body Mass Index 40.7 Const General: cooperative, no acute distress, alert and awake Nutritional Appearance: well nourished Orientation/consciousness: patient oriented x3 HENMT Head: Yes normal to inspection and Yes atraumatic Ears: hearing grossly normal bilaterally, external ears normal and TM abnormal bulging bilateral General nose exam: Normal external nose present, no nasal discharge noted and no epistaxis Face and sinus: Yes normal facial exam, No abrasion and No laceration Mouth: Normal oral and palatal mucosa present, no drooling and no muffled voice Eyes General: appearance normal, both eyes and all related structures Periorbital: periorbital findings normal Eyelids: Yes eyelids normal Conjunctivae: conjunctivae normal Pupils: Equal, round and reactive pupils present EOM: EOMs intact bilaterally Neck Neck: Yes normal visual inspection and Yes full ROM Resp Effort & Inspection: normal respiratory effort and able to speak in complete sentences Neuro General: patient oriented x3, moves all extremities and CN's II-XI intact bilaterally Cranial nerves: Yes Equal, round and reactive pupils present Cognition (Neuro): normal cognition Extrem General: Yes normal to inspection, Yes full ROM and Yes capillary refill normal Psych Appearance: grossly normal Mental Status: mental status grossly normal Affect: normal affect Attitude: cooperative Thought process: Normal thought process present Thought content: Normal thought content present Insight: Good insight present (Psych) Course Course Course Narrative: Rapid medical examination performed in triage by Aundrea Odonnell PA-C. Patient is a 25 year old assigned female at presenting to the emergency department with bilateral ear pain and congestion. Detailed physical exam and review of systems are deferred to the audio tape librarian. Swabs ordered. Patient placed back in the waiting room pending room availability and results. Medical Decision Making Medical Decision Making MDM Narrative: Patient is a 25 year old assigned female at with no reported medical history presenting to the emergency department today with bilateral ear pain - left worse than right. Patient's physical exam was as noted in the physical exam portion of this note. Patient had bilateral bulging TMs. Patient's COVID-19 and Influenza testing was negative. Patient's clinical presentation is most consistent with viral sinusitis vs. bilateral OM. I explained my physical exam findings as well as all test results to the patient. I answered all questions asked by the patient. Patient states that she has severe PCN allergy - anaphylaxis. Given this information, patient prescribed azithromycin to cover for possible bilateral OM. I stressed the importance of the patient taking her medication as directed (either prescribed or as the over the counter packaging recommends). I stressed the importance of the patient following up with her primary care provider. I stressed the importance of the patient returning to the emergency department immediately if her symptoms were to worsen or if she were to develop any dizziness, shortness of breath, difficulty breathing, chest pain, blurry vision, loss of vision, nausea, vomiting, abdominal pain, fever, chills, back pain, or any other complaints. Patient verbalized agreement and understanding with this treatment plan and discharge. Differential Diagnosis Differential Diagnoses: The differential diagnosis associated with the presentation includes Viral illness Viral sinusitis COVID-19 Influenza Bilateral otitis media Admission/Observation Consideration of admission/observation: Escalation of care including admission/observation considered Patient would have been admitted to the hospital had her work up had any findings where hospital admission was appropriate and her clinical presentation warranted hospital admission. Lab Data MDM Lab Attestation statement: I reviewed the patient's lab results. My interpretation of these studies and their corresponding values is that they are grossly normal. Labs: Lab Results 07/24/25 Range/Units 17:09 COVID-19 ([facility]) Negative (Negative) COVID-19 Clin Com See Note Influenza Type A (PATIENCE) Negative (Negative) Influenza Type B (PATIENCE) Negative (Negative) Influenza A & B Note See Note Prescription Management I considered prescription management with: Antibiotic (patient prescribed an antibiotic for bilateral otitis media) Discharge Plan Discharge Clinical Impression: Otitis media, Sinusitis Patient Disposition: Home, Self-Care Instructions: Ear Infection (ED) Additional Instructions: Take your antibiotic as prescribed. IF you are prescribed home medications and/or you are taking over the counter medications at home - it is very important you continue to do so as prescribed / directed unless told otherwise. Follow up with a primary care provider. Return to the emergency department immediately if your symptoms worsen or if you develop any numbness, tingling, dizziness, shortness of breath, difficulty breathing, chest pain, blurry vision, loss of vision, nausea, vomiting, abdominal pain, fever, chills, back pain, or any other complaints. If you do not have a primary care provider - call any of the below numbers to establish and follow up with a primary care provider. [facility] ([place]) [phone] [place] [address], [address] [facility] ([address] [place]) [phone] [address] [facility], [address] [place], [address] [facility] ([address] [place]) [phone] [address] [facility], [address] [place], [address] [facility] ([place]) [phone] [place] [address], [address] [place], [address] [facility] [phone] [place] [address], [address] Please see the information below about our Patient Portal. If you are not yet enrolled in the [facility] Patient Portal, you will receive an enrollment email invitation following your visit to any [facility] setting. You may also self-enroll in the Patient Portal by visiting our website: [email or web address] The following information is required to access the Patient Portal: - Your [facility] Medical Record Number - Your personal home email address (must match what is in your electronic [facility] record, Registration staff can assist with this) - Name - Date of Capabilities of the Patient Portal: - Message some providers - View upcoming appointments - Access your health summary, medical history, and visit history - View current conditions and allergies - View procedure and lab results - View your medications, including guidelines, side effects, and precautions - Complete pre-appointment questionnaires requested by your provider - Ready summary reports of your office visits and procedures To access the Patient Portal Mobile [employer], follow these directions: - Search [facility] [employer] in the [employer] Store or [employer] - Download the [employer] - Search for [facility] - Enter your login/password Prescriptions: New azithromycin 250 mg tablet See Rx Instructions .ROUTE .COMPLEX Qty: 6 0RF Rx Instructions: For 250 mg dose pack: take 500 mg today (day 1), then 250 mg for 4 days (days 2-5) No Action Paxlovid 300 mg (150 mg x 2)-100 mg tablets,dose pack See Rx Instructions .ROUTE .COMPLEX Qty: 30 0RF Rx Instructions: take TWO 150 mg tablets of nirmatrelvir with ONE 100 mg tablet of ritonavir twice daily for 5 days albuterol sulfate 90 mcg/actuation HFA aerosol inhaler 2 puff inhalation Q4-6H PRN (Reason: shortness of breath or wheezing) Qty: 8.5 1RF albuterol sulfate 2.5 mg /3 mL (0.083 %) solution for nebulization 2.5 mg inhalation Q4-6H PRN (Reason: shortness of breath or wheezing) Qty: 75 0RF prednisone 50 mg tablet 50 mg PO DAILY Qty: 5 0RF cefdinir 300 mg capsule 300 mg PO BID 7 Days Qty: 14 0RF oseltamivir [Tamiflu] 75 mg capsule 75 mg PO BID 5 Days Qty: 10 0RF ciprofloxacin-dexamethasone [Ciprodex] 0.3-0.1 % drops,suspension 4 drp otic (ears) BID 7 Days Qty: 7.5 0RF doxycycline hyclate 100 mg tablet 100 mg PO BID 7 Days Qty: 14 0RF omeprazole 40 mg capsule,delayed release(DR/EC) 40 mg PO DAILY Qty: 30 0RF ondansetron 4 mg tablet,disintegrating 4 mg PO Q8H 3 Days Qty: 9 0RF cefuroxime axetil 500 mg tablet 500 mg PO BID 7 Days Qty: 14 0RF ibuprofen 600 mg tablet 600 mg PO Q6H PRN (Reason: pain) Qty: 30 0RF acetaminophen [Tylenol Extra Strength] 500 mg tablet 1,000 mg PO Q8H PRN (Reason: pain) Qty: 30 0RF cyclobenzaprine 10 mg tablet 10 mg PO TID PRN (Reason: muscle spasm) Qty: 10 0RF oseltamivir [Tamiflu] 75 mg capsule 75 mg PO BID 5 Days Qty: 10 0RF oseltamivir [Tamiflu] 75 mg capsule 75 mg PO BID 5 Days Qty: 10 0RF Stand Alone Forms: Work/School Release Print Language: Thai
[2025-07-24 17:53] LABS: COVID-19 Test Negative (Negative); IDNOW Serial# 55D5AD1C
[2025-07-24 17:56] LABS: IDNOW Serial# 58CA691E; Influenza B2 Negative (Negative)
--- OUTSIDE RECORDS SUMMARY | 2025-07-24 18:54 | XMS_ITS | Clinical Summary ---
Author Organization [facility] Address [address] [address] Phone Care Team Providers Care Application Dba Name Role Phone Pcp, Unknown Primary Care Provider Unavailabl e Allergies Active Allergy Reactions Criticality Noted Date Comments Penicillins High 07/24/2024 Medications No known medications Social History Tobacco Use Types Packs/Day Years Used Date Smoking Tobacco: Never Assessed Education Answer Date Recorded Are you interested in more education? Not on bobby e 07/24/2024 Are you concerned about learning? Not on file 07/24/2024 No 07/24/2024 No 07/24/2024 Digital Access Answer Date Recorded No 07/24/2024 No 07/24/2024 Reliable internet access at home? Not on file 07/24/2024 Device with a working camera? Not on file Intimate Partner Violence Answer Date R ecorded Are you denied basic needs s uch as food, clothing, or medical care? No 07/24/2024 In the past 12 months have y ou been in a relationship with a person who hurts, threatens, or tries to control you? No 07/24/2024 Are you denied basic needs s uch as food, clothing, or medical care? No 07/24/2024 In the past 12 months have y ou been in a relationship with a person who hurts, threatens, or tries to control you? No 07/24/2024 Comments Unknown Sex and Gender Information Value Date Recorded Sex Assigned at Not on file Legal Sex Female 8:13 PM EDT Gender Identity Not on file Sexual Orientation Not on file Last Filed Vital Signs Vital Sign Reading Time Taken Comments Blood Pressure 101/66 07/24/2024 8:18 PM EDT Pulse 73 07/24/2024 8:18 PM EDT Temperature 36.5 C (97.7 F) 07/24/2024 8:18 PM EDT Respiratory Rate 20 07/24/2024 8:18 PM EDT Oxygen Saturation 99% 07/24/2024 8:18 PM EDT Inhaled Oxygen Concentration - - Weight - - Height - - Body Mass Index - - Plan of Treatment Health Maintenance Due Date Last Done Comments Adult Td,Tdap Booster 2002 DEPRESSION SCREENING 2014 SMOKING Hx and SMOKELESS TOB ACCO SCREENING 2015 HPV VACCINES (1 - 3-dose series) 2017 CHLAMYDIA SCREENING 2018 MENINGOCOCCAL VACCINES (B) ( 1 of 2 - Standard) 2018 HEPATITIS C SCREENING 02/10/2020 HIV ONE-TIME SCREENING (18-6 5 YEARS) 02/10/2020 PAP SMEAR 2023 INFLUENZA VACCINE (#1) 2025 COVID-19 VACCINE ( - 2023-2 5 season) 2025 HEPATITIS A VACCINES Aged Out No long er eligible based on patient's age to complete this topic HIB VACCINES Aged Out No longer eligi ble based on patient's age to complete this topic MENINGOCOCCAL VACCINES (ACWY) Aged Out No longer eligible based on patient's age to complete this topic PNEUMOCOCCAL VACCINES (0-49 years) Aged Out No longer eligible based on patient's age to complete this topic Medical Devices Not on file Care Teams Application Dba Relationship Specialty Start Date End Date Pcp, Unknown PCP - General 07/24/24 Additional Source Comments The information contained in this document represents components of the legal health record. It is not the complete legal health record.[facility]
[2025-07-24 19:02] VITALS: BP 118/56; PULSE 80; RESP 16; TEMP 36.9; O2SAT 97
== END 2025-07-24 19:03 | disposition home or self-care (01) ==
PROVIDERS: Physician Assistant Medical; Emergency Provider Emergency Medicine
DX: H66.93 Otitis media, unspecified, bilateral (principal); J32.9 Chronic sinusitis, unspecified
CPT/HCPCS: 87502; 87635; 99282; 99283